=== PATIENT | female | born 1960 | race Caucasian/White ===

== ENCOUNTER 2016-07-21 05:48 | Day surgery (SDC) | payer OTHER ==
[2016-07-16 15:13] VITALS: BMI 25.7
[~2016-07-21 05:48] MED LIST: DEXAMETHASONE SOD PHOSPHATE 10 MG/ML 1 ML VIAL IV ONE; HYDROmorphone 1 MG/ML 1 ML SYRINGE IVP PRN; MIDAZOLAM 2 MG/2 ML VIAL IV PRN; ONDANSETRON 4 MG/2 ML VIAL IVP ONE; Pre Op ABX Message 1 EACH MISC MISCELLANE ONE; SCOPOLAMINE 1.5MG/72HR PATCH TRANSDERM ONE
[2016-07-21 06:11] VITALS: RESP 16
[2016-07-21] MEDS ORDERED: LIDOCAINE 1% 20 ML VIAL (10MG/ML) FOR IV START INTRADERMA ONE (06:16)
[2016-07-21] MEDS: LACTATED RINGERS 1,000 ML IV SCH ×2 (06:16→08:56)
[2016-07-21 06:21] LABS: Glucose,Whole Blood 126 mg/dL (75-99)
[2016-07-21] MEDS ORDERED: ROCURONIUM BROMIDE 10 MG/ML 10 ML VIAL IV ONE (07:52)
[2016-07-21] MEDS ORDERED: GLYCOPYRROLATE 0.2 MG/ML 2 ML VIAL ONE (07:52)
[2016-07-21] MEDS ORDERED: NEOSTIGMINE 1 MG/ML 10 ML VIAL ONE (07:52)
[2016-07-21] MEDS ORDERED: MIDAZOLAM 2 MG/2 ML VIAL ONE (07:52)
[2016-07-21] MEDS ORDERED: PROPOFOL 10 MG/ML 20 ML VIAL IV ONE (07:52)
[2016-07-21] MEDS ORDERED: PHENYLEPHRINE-0.9% NACL SYG 1 MG/10 ML SYRINGE ONE (07:52)
[2016-07-21] MEDS ORDERED: fentaNYL (PF) 50 MCG/ML 2 ML AMP ONE (07:52)
[2016-07-21] MEDS ORDERED: ePHEDrine 50 MG/ML 1 ML AMP ONE (07:52)
[2016-07-21] MEDS ORDERED: LIDOCAINE 1% INJ 10MG/ML (20 ML MDV) ONE (07:52)
[2016-07-21] MEDS ORDERED: LIDOCAINE 2%-EPI 1:100,000 20 ML VIAL ONE (07:52)
[2016-07-21] MEDS ORDERED: SODIUM CHLORIDE 0.9% 50 ML with ceFAZolin 2,000 MG IV ONE ×2 (07:52)
[2016-07-21] MEDS ORDERED: ROPIVACAINE 5 MG/ML 30 ML VIAL ONE (07:52)
[2016-07-21] MEDS ORDERED: SUCCINYLCHOLINE CHLORIDE 100 MG/5 ML SYR IV ONE (07:52)
[2016-07-21 09:12] VITALS: TEMP 98
--- NOTE | 2016-07-21 09:20 | P.OP ---
Date of Procedure: 07/21/16 Preoperative Diagnosis: Massive rotator cuff tear right shoulder Postoperative Diagnosis: 1. Massive rotator cuff tear right shoulder with retraction 2. Labral tear 3. Synovitis 4. Impingement 5. Acromioclavicular osteoarthritis Procedure(s) Performed: 1. Exam under anesthesia right shoulder 2. Arthroscopy of the right shoulder with debridement chronic tear rotator cuff tendon 3. Debridement labral tear 4. Partial synovectomy 5. Subacromial decompression 6. Partial distal clavicle excision Anesthesia: DYLAN Surgeon: Emanuel Mathews Marketing Project Coordinator #1: Leatha Wheta Estimated Blood Loss (ml): 10 Pathology: none sent Condition: stable Disposition: PACU Indications for Procedure: This is a 55-year-old female that presented to my office with chronic pain in her right shoulder. She had an MRI performed which showed a large retracted tear of the rotator cuff tendon. After discussing the surgical and nonsurgical treatment options with her at length, she wishes to proceed with arthroscopic debridement of her right shoulder, possible repair of the rotator cuff tendon. It was explained to her at length that due to the retraction of the tendon, it may not be amendable to repair. She is aware of this, and informed consent was obtained. Operative Findings: The operative findings are consistent with a chronic retracted rotator cuff tear , which was unable to be repaired. Description of Procedure: The patient was seen in the preoperative area, consent was reviewed and the operative site was marked with a skin marker. An interscalene nerve block was performed by the anesthesia department. Patient was then brought to the operating room and given 2 g of Ancef intravenously. A general anesthetic was administered by the anesthesia department. Patient was then placed in a beachchair position. All bony prominences were well-padded and the head secured. Her right shoulder was then prepped and draped in the usual sterile fashion. A universal timeout was then performed, which confirmed the patient's name, ALLERGIES, and consent. An examination of the shoulder under anesthesia was performed, and it was found to have full range of motion with no instability arthrofibrosis. Procedure began by identifying the landmarks of the shoulder, and a posterior portal was established into the glenohumeral joint. The camera was then inserted, and the glenohumeral joint was inspected. The glenohumeral joint was found to have a large amount of synovitis. There was no evidence of any significant chondromalacia. The biceps tendon was intact, although there was some slight fraying and tearing of the anterior and posterior labrum. Subscapularis tendon was intact. There was an extremely large tear of the supraspinatus and infraspinatus portion of the rotator cuff tendon. There were significant retraction. A working portal established anterior aspect of the shoulder, and a shaver was inserted. A partial synovectomy was performed as well as debridement of the labrum. The instruments were then removed, and the trocar was reinserted into the subacromial space. Again the large retracted rotator cuff tendon was visualized from the superior aspect. A tendon grasper was then used to grasp the tendon, and was found to be difficult to mobilize. Due to this lack of mobilization, it was felt the rotator cuff tendon could not be repaired. A third portal established in the lateral aspect of the shoulder, and using electrocautery as well as a shaver rotator cuff tendon was debrided. Subacromial decompression was performed as well, as well as a partial distal clavicle excision. Approximately 10% of the distal clavicle was excised. After thorough irrigation, the instruments were then removed. The portals were then closed with 4-0 nylon suture. Sterile dressing was then applied, the patient placed in an arm sling. Patient was then transferred to recovery room in stable condition. Asst. JADE Montes De Oca was required due the complexity of the surgery and the need for a skilled surgical asst.
[2016-07-21 10:24] VITALS: BP 136/63; PULSE 93
== END 2016-07-21 11:30 | disposition home or self-care (01) ==
LOC: OR 05:48
PROVIDERS: ATTEND Orthopaedic Surgery
DX: M75.121 Complete rotator cuff tear or rupture of right shoulder, not specified as traumatic (principal); S43.401A Unspecified sprain of right shoulder joint, initial encounter; X58.XXXA Exposure to other specified factors, initial encounter; M65.811 Other synovitis and tenosynovitis, right shoulder; M75.41 Impingement syndrome of right shoulder; M19.011 Primary osteoarthritis, right shoulder; I10 Essential (primary) hypertension; E78.2 Mixed hyperlipidemia; D15.1 Benign neoplasm of heart; Z86.73 Personal history of transient ischemic attack (TIA), and cerebral infarction without residual deficits; E11.9 Type 2 diabetes mellitus without complications; Z79.02 Long term (current) use of antithrombotics/antiplatelets; Z79.899 Other long term (current) drug therapy; Z88.8 Allergy status to other drugs, medicaments and biological substances
CPT/HCPCS: 64415; 29824; 29826; J2250; J1100; J2710; J2405; J2001; J3010; J0690; J2795; J2370; J0330; J2704

== ENCOUNTER → 2017-01-26 | Outpatient (CLI) | payer OTHER ==
--- NOTE | 2017-01-27 09:27 | MR ---
EXAMINATION TYPE: MR cervical spine wo con DATE OF EXAM: 01/26/2017 COMPARISON: NONE HISTORY: Neck pain, RUE radic TECHNIQUE: Multiplanar, multisequence images of the cervical spine were acquired. C2-C3: No evidence for degenerative disc disease. No disc bulge/herniation or protrusion. No Canal stenosis. Foramina are patent bilaterally. C3-C4: There is uncovertebral joint hypertrophy in the right with a central and right paracentral dis c bulge. No canal stenosis. Mild right-sided foraminal encroachment. C4-C5: Left paracentral disc bulging and mild effacement of thecal sac. Mild hypertrophy of the facet s. Mild right-sided foraminal encroachment with uncovertebral joint hypertrophy. No Canal stenosis. C5-C6: No evidence for degenerative disc disease. No disc bulge/herniation or protrusion. No Canal stenosis. Foramina are patent bilaterally. C6-C7: No evidence for degenerative disc disease. No disc bulge/herniation or protrusion. No Canal stenosis. Foramina are patent bilaterally. C7-T1: No evidence for degenerative disc disease. No disc bulge/herniation or protrusion. No Canal stenosis. Foramina are patent bilaterally. Cervical segments are intact. There is normal alignment. Cervical spinal cord is of normal signal. Craniovertebral junction relationships are within normal limits. 1.2 cm left thyroid nodule. IMPRESSION: 1. There is a right paracentral disc bulge or small protrusion with uncovertebral joint hypertrophy C 3-C4 and mild right-sided foraminal encroachment. 2. Left paracentral disc bulging with mild effacement of thecal sac C4-C5. Uncovertebral joint hypert rophy on the right at this level contributes to mild right foraminal encroachment. No left foraminal encroachment. 3. 1.2 cm left thyroid nodule.
== END | disposition home or self-care (01) ==
LOC: RADMRIMAIN 20:37
PROVIDERS: ATTEND Family Medicine
DX: M50.11 Cervical disc disorder with radiculopathy, high cervical region (principal)
CPT/HCPCS: 72141

== ENCOUNTER → 2017-02-03 | Outpatient (CLI) | payer OTHER ==
--- NOTE | 2017-02-04 06:01 | WWHP ---
[facility] - HISTORY AND PHYSICAL DATE OF SERVICE: 02/03/2017 CHIEF COMPLAINT: The patient is here for her routine gynecologic exam and mammogram. HPI: This is a 56-year-old, G1, P1 with an LMP of 2010. The patient is without gynecologic complaints and denies any postmenopausal bleeding. PAST MEDICAL HISTORY: Chronic hypertension, CVA in 2016, type 2 diabetes, elevated cholesterol, chronic neck problems, and history of osteopenia. MEDICATIONS: 1. Benazepril 40 mg daily. 2. Atorvastatin 40 mg daily. 3. Glipizide 5 mg daily. 4. Clopidogrel 75 mg daily. ALLERGIES: Allergies to COMPAZINE. PAST SURGICAL HISTORY: Cold knife conization of the cervix in approximately 2008, colonoscopy 2008, right arm surgery, left ankle surgery and left knee surgery in the past. PAST KIT PLANNER HISTORY: She was once told she had HPV following an abnormal Pap smear and also had a cold knife conization of the cervix in 2008. She has no other history of STDs. SOCIAL HISTORY: She admits to smoking about a half a pack of cigarettes per day. She denies alcohol and drug use, but did use marijuana in the past. She is currently unemployed and is filing for disability. FAMILY HISTORY: Sister had cervical cancer. Brother had heart disease and of AIDS. Maternal grandmother had bladder cancer. Father had an ME and lung problems. Mother had heart disease and diabetes. REVIEW OF SYSTEMS: She has gained about 30 pounds over the last 2 to 3 years and this was after losing 50 pounds. She attributes her weight gain to decreased activity following her stroke. She denies respiratory, cardiac or GI problems. PHYSICAL EXAM: Blood pressure 160/67, height 5 feet 4 inches, weight 164 pounds. Temperature 98.4, pulse 102. This is a well-developed, well-nourished, white female, who is alert and oriented x3, in no acute distress. HEENT is within normal limits. NECK: Supple without mass or thyromegaly. CHEST AND LUNGS: Clear to auscultation. HEART: Regular rate and rhythm. Breasts are without mass or discharge. Axillary exam is negative for adenopathy. BACK: Negative for CVA tenderness. ABDOMEN: Soft, nontender, without palpable masses. PELVIC EXAM: External genitalia reveals [id number] atrophy without lesions. Cervix is somewhat shortened and appears somewhat stenotic, consistent with her previous cone biopsy of the cervix. There is no evidence of prolapse. Bimanual exam, the uterus is mid position, nongravid size and nontender. There are no palpable adnexal masses or tenderness. Rectovaginal exam is negative for mass or tenderness and is negative for occult blood. EXTREMITIES: Nontender. IMPRESSION: 1. A 56-year-old menopausal female who is status post cone biopsy of the cervix in 2008. 2. In the patient's electronic medical record, there is documentation that she has had a previous hysterectomy, which I do not believe is correct. 3. Elevated blood pressure on exam today with history of chronic hypertension. 4. Multiple medical problems. PLAN: 1. Pap smear was performed. 2. Self breast examination was discussed. 3. Mammogram will be done today. 4. I have recommended that she follow up with Dr. Hernandez for her elevated blood pressure and also to do home blood pressure checks. 5. Osteoporosis prevention was discussed. We will plan on repeating bone density testing next year. 6. I have stressed the importance of trying to quit smoking, especially with her history of stroke. 7. I will confirm with the patient that she has not had a hysterectomy as indicated on her electronic medical record. If this is the case, and there is an error I will direct her to the medical record department to make a correction in her electronic medical record. 8. She will return in 1 year. MMAUTUMNL / MARCN: [id number] /
--- NOTE | 2017-02-05 08:53 | MM ---
Reason for exam: screening (asymptomatic). Last mammogram was performed 2 years and 10 months ago. History: Patient is postmenopausal and had first child at age 33. Physical Findings: A clinical breast exam by your physician is recommended on an annual basis and results should be correlated with mammographic findings. MG Screening Mammo w CAD Bilateral CC and MLO view(s) were taken. Prior study comparison: April 11, 2014, bilateral MG screening mammo w CAD. The breast tissue is almost entirely fat. No significant changes when compared with prior studies. ASSESSMENT: Negative, BI-RAD 1 RECOMMENDATION: Routine screening mammogram of both breasts in 1 year.
== END | disposition home or self-care (01) ==
LOC: WWCWWP 15:12
PROVIDERS: ATTEND Obstetrics & Gynecology
DX: Z12.31 Encounter for screening mammogram for malignant neoplasm of breast (principal)

== ENCOUNTER → 2017-05-19 | Outpatient (CLI) | payer OTHER ==
[2017-05-14 13:09] VITALS: BMI 27.4
[2017-05-19 11:54] VITALS: BP 131/81; PULSE 97; RESP 20
--- NOTE | 2017-05-19 12:17 | P.HPIM ---
History of Present Illness H&P Date: 05/19/17 Chief Complaint: neck and shoulder pain This is a 56-year-old patient referred by Dr. Hernandez for chronic pain in neck and right arm with radiation to fingers. Patient had shoulder and R arm pain which she believes is due to rotator cuff tear, but underwent unsuccessful repair in June and began to have pain shooting down her arm into her fingers which began a month after the surgery. Patient has been taking medications from primary care physician including [place] medications with some relief. Patient denies adverse drug effects from medications. Patient also denies new- onset weakness, bowel/bladder incontinence, or any other signs or symptoms of cauda equina syndrome. There are no signs of acute intoxication, and no indications of medication diversion or overuse. Patient notes that pain worsens significantly with shoulder abduction and grasping items and improves with rest, heat, and medication. Patient has used several types of medications for pain, including NSAIDS, OPIOIDS ([place]) and BENZODIAZEPINES. Patient HAS had surgery (right shoulder). Patient HAS NOT had injections previously. Patient HAS had physical therapy recently without relief. In addition to above, 13-point review of systems is also negative for chest pain , shortness of breath, changes in vision, changes in hearing, new onset weakness , abdominal pain, diarrhea, extreme fatigue, malaise, fever, skin changes, homicidal or suicidal ideation, or bowel or bladder incontinence. Vital Signs: Reviewed in EMR Gen: WDWN, AAOx3, NAD HEENT: NCAT, EOMI, hearing grossly normal Pulm: resp unlabored Abd: soft, NT, ND Neck: supple, trachea midline ROM in flexion cervical spine: reduced ROM in extension cervical spine: reduced Cervical paravertebral tenderness: + Cervical Facet tenderness: neg Spurling's: + RUE Upper extremity: decreased international project engineer strength RUE secondary to pain; decreased sensation over second and third fingers Neuro: CN II-XII grossly intact, muscle strength lower extremities PRESERVED Past Medical History Past Medical History: CVA/TIA, Diabetes Mellitus, GERD/Reflux, Hyperlipidemia, Hypertension Additional Past Medical History / Comment(s): 2009 patient had TIA, pain rt neck , shoulder and arm History of Any Multi-Drug Resistant Organisms: None Reported Past Surgical History: Orthopedic Surgery Additional Past Surgical History / Comment(s): left knee and ankle Past Anesthesia/Blood Transfusion Reactions: No Reported Reaction Smoking Status: Current every day smoker - Past Family History Mother Family Medical History: Unable to Obtain Father Family Medical History: Myocardial Infarction (MS) Sister(s) Family Medical History: Cancer Additional Family Medical History / Comment(s): uterine cancer Brother(s) Additional Family Medical History / Comment(s): patient states her 2 brothers of AIDS Medications and Allergies Home Medications Medication Instructions Recorded Confirmed Type Benazepril HCl 40 mg PO DAILY 12/11/15 05/14/17 History Atorvastatin [Lipitor] 40 mg PO HS #30 tab 12/14/15 05/14/17 Rx Clopidogrel [Plavix] 75 mg PO DAILY #30 tablet 12/14/15 05/14/17 Rx Hydrocodone/Acetaminophen [[place] 1 - 2 each PO Q6HR PRN #60 tab 07/21/16 Rx 5-325] amLODIPine [Norvasc] 5 mg PO DAILY 05/14/17 05/14/17 History glipiZIDE [Glucotrol] 5 mg PO AC-BRKFST 05/14/17 05/14/17 History Allergies Allergy/AdvReac Type Severity Reaction Status Date / Time prochlorperazine Allergy Severe Anaphylaxis Verified 05/14/17 12:54 [From Compazine] prochlorperazine edisylate Allergy Severe Anaphylaxis Verified 05/14/17 12:54 [From Compazine] prochlorperazine maleate Allergy Severe Anaphylaxis Verified 05/14/17 12:54 [From Compazine] adhesive tape Allergy Rash/Hives Verified 05/14/17 12:55 aspirin AdvReac bruising Verified 05/14/17 12:55 Results Comments: MRI cervical spine without contrast dated 01/26/2017 demonstrates a right paracentral disc bulge or small protrusion with uncovertebral joint hypertrophy at C3-C4 level and mild right-sided foraminal encroachment. There is also left paracentral disc bulge with mild effacement of thecal sac at C4-C5 with uncovertebral joint hypertrophy on the right at this level contributing to mild right foraminal encroachment. Assessment and Plan (1) Cervical disc herniation Current Visit: Yes Status: Chronic Code(s): M50.20 - OTHER CERVICAL DISC DISPLACEMENT, UNSP CERVICAL REGION SNOMED Code(s): 676330418 (2) Cervical myelopathy with cervical radiculopathy Current Visit: Yes Status: Chronic Code(s): M47.12 - OTHER SPONDYLOSIS WITH MYELOPATHY, CERVICAL REGION SNOMED Code(s): 350357370 (3) Chronic pain syndrome Current Visit: Yes Status: Chronic Code(s): G89.4 - CHRONIC PAIN SYNDROME SNOMED Code(s): 139479811 Plan: 1. Explanation: Opioid and psychological risk scores were reviewed. Diagnoses , prognoses, and multiple treatment options including but not limited to physical therapy, interventional therapies, adjuvant medical therapies, narcotic medication therapies, and surgery were discussed with the patient and all questions were answered to the patient's satisfaction. 2. Opioid agreement: Patient signed narcotic agreement, and was orally counseled to not overuse, abuse, divert, or cell medications, and to take them as prescribed by only 1 healthcare provider. The patient was also counseled to take medications as prescribed by only 1 healthcare provider and to store opioid medications in the safe and preferably locked location. Patient was also counseled against driving or operating heavy equipment while using narcotic medications and also not use alcohol or any illicit or recreational drugs. The patient verbalized understanding that lack of compliance with any of the above and likely result in failure to renew narcotic prescriptions, possible discharge from the clinic, and possible legal ramifications thereafter if indicated. 3. Counseling: The patient was counseled extensively on SMOKING CESSATION, BODY MASS INDEX, EXERCISE. Specifically, the patient was instructed regarding the importance of smoking cessation, weight control, and exercise in the context of both chronic pain and overall health. 4. Procedures: cervical HEATHER C7-T1 series if patient can come off Plavix for seven days (Hx CVA) 5. Consultations: none 6. Investigations: none 7. Medications: none prescribed 8. Disposition: f/u for procedure as scheduled PQRS measures: 1-Patient's medications are documented in the chart. 2-Tobacco use is positive, counseling given 3-Patient has not had a pneumococcal vaccine. 4-Advanced care planning discussed, patient unable to give. 5-Opioid contract NOT signed with the patient. 6-Pain positive, follow-up visit or procedure scheduled 7-Patient's blood pressure measured and documented, and patient will follow up with the primary care due to hypertension. 8-Patient's weight was measured, and body mass index ABOVE the normal limits, and counseling was done. Patient instructed to follow up with PCP. 9-Patient WAS NOT identified as an unhealthy alcohol user. Time with Patient: Greater than 30
== END | disposition home or self-care (01) ==
LOC: PNWHC3 11:29
PROVIDERS: ATTEND Anesthesiology
DX: G89.4 Chronic pain syndrome (principal); M50.20 Other cervical disc displacement, unspecified cervical region; M47.12 Other spondylosis with myelopathy, cervical region; E11.9 Type 2 diabetes mellitus without complications; K21.9 Gastro-esophageal reflux disease without esophagitis; E78.5 Hyperlipidemia, unspecified; I10 Essential (primary) hypertension; F17.210 Nicotine dependence, cigarettes, uncomplicated; Z86.73 Personal history of transient ischemic attack (TIA), and cerebral infarction without residual deficits; Z79.899 Other long term (current) drug therapy; Z98.890 Other specified postprocedural states; Z79.1 Long term (current) use of non-steroidal anti-inflammatories (NSAID); Z79.891 Long term (current) use of opiate analgesic; Z79.01 Long term (current) use of anticoagulants; Z79.84 Long term (current) use of oral hypoglycemic drugs; Z88.6 Allergy status to analgesic agent; Z88.8 Allergy status to other drugs, medicaments and biological substances; Z91.048 Other nonmedicinal substance allergy status; Z71.89 Other specified counseling
CPT/HCPCS: 99211

== ENCOUNTER 2017-06-15 06:17 | Day surgery (SDC) | payer OTHER ==
[2017-06-09 15:07] VITALS: BMI 27.4
[2017-06-15 06:57] LABS: Glucose,Whole Blood 122 mg/dL (75-99)
[2017-06-15 06:59] VITALS: TEMP 98.7
[2017-06-15] MEDS ORDERED: LACTATED RINGERS 1,000 ML IV ONE ×2 (06:59→07:45)
[2017-06-15 08:07] VITALS: BP 117/59; PULSE 65; RESP 16
[2017-06-15] MEDS ORDERED: IV FLUID CONTINUATION 1,000 ML IV ONE (08:11)
--- NOTE | 2017-06-15 08:28 | FL ---
EXAMINATION TYPE: FL guided pain mgmt statistic DATE OF EXAM: 06/15/2017 FLUOROSCOPY Fluoroscopy time of 9 seconds was used during cervical epidural injection. 2 image/s document/s the procedure.
--- NOTE | 2017-06-15 08:34 | P.PCN ---
Date of Procedure: 06/15/17 Surgeon: Quoc Menchaca Pathology: none sent Condition: stable Disposition: PACU Description of Procedure: PREOPERATIVE DIAGNOSIS: Cervical radiculopathy. POSTOPERATIVE DIAGNOSIS: Cervical radiculopathy. PROCEDURE 1. Cervical epidural steroid injection under fluoroscopic guidance, C7-T1 level. 2. Cervical epidurogram. ANESTHESIA: Local anesthesia with 1% lidocaine and IV sedation with versed/ fentanyl. EBL: Minimal PROCEDURE INDICATION: The patient with neck pain and radiculitis unresponsive to conservative treatment consents for procedure, FORTUNATO #1 tooday. No use of blood thinners. PROCEDURE DESCRIPTION / TECHNIQUE: The patient was seen and identified in the preoperative area. Risks, benefits, complications, and alternatives were discussed with the patient (including but not limited to incomplete pain relief, bleeding, infection, nerve damage, and allergies to medications), the patient agreed to proceed with the procedure and signed the consent after all questions were answered. Patient was taken to the OR and time out was completed to verify proper patient , position, laterality of pain, and allergies. Pt was placed in the prone position. A pillow was placed under the patients chest to increase the cervical interlaminar space. The cervical and high thoracic area was prepped and draped in the usual sterile fashion. Critical pause was taken. Vital signs were closely monitored during the procedure. Conscious sedation was used during the procedure to decrease patients anxiety. Using anterior-posterior fluoroscopy, the C7-T1 interlaminar space was identified and the skin over this site was marked and then infiltrated with 1% lidocaine subcutaneously in a paramedian fashion. Subsequently, a 20-gauge 3-1/2 -inch Tuohy epidural needle was inserted and advanced toward the epidural space by means of the loss of resistance technique and guided by AP and lateral fluoroscopy. After negative aspiration for blood or CSF and in the absence of paresthesias, the correct needle position in the epidural space was verified with the injection of 1 mL of the water soluble contrast dye [id number]-180 and observing an excellent epidurogram with the epidural spread of the dye, after negative aspiration for blood and CSF and in the absence of paresthesias. Again after negative aspiration, a 4 ml mixture containing 20 mg of Decadron and 2 ml of preservative free Normal Saline solution was injected and a washout of epidurogram was seen. Needle was withdrawn intact, skin was cleansed, and bandages were applied. COMPLICATIONS: None COMMENTS: DISPOSITION / PLANS: The patient was placed in a supine position and transferred to the recovery area in a stable condition for observation. There was no evidence of upper extremity motor or sensory deficit after the procedure. Patient was discharged from the recovery room after meeting discharge criteria. Home discharge instructions were given to the patient by the staff. The patient was reexamined prior to discharge and there were no issues. The patient will schedule a repeat procedure in 3-4 weeks.
== END 2017-06-15 08:19 | disposition home or self-care (01) ==
LOC: ORPAIN 06:17
PROVIDERS: ATTEND Anesthesiology
DX: G89.29 Other chronic pain (principal); M54.12 Radiculopathy, cervical region; Z86.73 Personal history of transient ischemic attack (TIA), and cerebral infarction without residual deficits; E11.9 Type 2 diabetes mellitus without complications; Z79.84 Long term (current) use of oral hypoglycemic drugs; K21.9 Gastro-esophageal reflux disease without esophagitis; E78.5 Hyperlipidemia, unspecified; I10 Essential (primary) hypertension; F17.200 Nicotine dependence, unspecified, uncomplicated; Z79.02 Long term (current) use of antithrombotics/antiplatelets; Z79.899 Other long term (current) drug therapy; Z88.6 Allergy status to analgesic agent; Z88.8 Allergy status to other drugs, medicaments and biological substances; Z91.09 Other allergy status, other than to drugs and biological substances
CPT/HCPCS: 62321; J2250; J1100; Q9965; J3010; 99152

== ENCOUNTER 2017-07-08 05:54 | Day surgery (SDC) | payer OTHER ==
[2017-07-03 10:32] VITALS: BMI 27.9
[~2017-07-08 05:54] MED LIST changes: -DEXAMETHASONE SOD PHOSPHATE 10 MG/ML 1 ML VIAL IV ONE; -HYDROmorphone 1 MG/ML 1 ML SYRINGE IVP PRN; +LACTATED RINGERS 1,000 ML IV SCH; -MIDAZOLAM 2 MG/2 ML VIAL IV PRN; -ONDANSETRON 4 MG/2 ML VIAL IVP ONE; -Pre Op ABX Message 1 EACH MISC MISCELLANE ONE; -SCOPOLAMINE 1.5MG/72HR PATCH TRANSDERM ONE
[2017-07-08 06:36] VITALS: RESP 18; TEMP 98
[2017-07-08] MEDS ORDERED: LIDOCAINE 1% 20 ML VIAL (10MG/ML) FOR IV START INTRADERMA ONE (06:37)
[2017-07-08] MEDS ORDERED: LACTATED RINGERS 1,000 ML IV ONE ×3 (06:37→07:35)
[2017-07-08 06:45] LABS: Glucose,Whole Blood 161 mg/dL (75-99)
[2017-07-08 07:51] VITALS: BP 107/62; PULSE 69
--- NOTE | 2017-07-08 07:54 | P.PCN ---
Date of Procedure: 07/08/17 Surgeon: Quoc Menchaca Pathology: none sent Condition: stable Disposition: PACU Description of Procedure: PREOPERATIVE DIAGNOSIS: Cervical radiculopathy. POSTOPERATIVE DIAGNOSIS: Cervical radiculopathy. PROCEDURE 1. Cervical epidural steroid injection under fluoroscopic guidance, C7-T1 level. 2. Cervical epidurogram. ANESTHESIA: Local anesthesia with 1% lidocaine and IV sedation with versed/ fentanyl. EBL: Minimal PROCEDURE INDICATION: The patient with neck pain and radiculitis unresponsive to conservative treatment consents for procedure, FORTUNATO #2 today after good relief for one week from first injection and complete elimination of numbness/ tingling in RUE. Off Plavix x 7 days. PROCEDURE DESCRIPTION / TECHNIQUE: The patient was seen and identified in the preoperative area. Risks, benefits, complications, and alternatives were discussed with the patient (including but not limited to incomplete pain relief, bleeding, infection, nerve damage, and allergies to medications), the patient agreed to proceed with the procedure and signed the consent after all questions were answered. Patient was taken to the OR and time out was completed to verify proper patient , position, laterality of pain, and allergies. Pt was placed in the prone position. A pillow was placed under the patients chest to increase the cervical interlaminar space. The cervical and high thoracic area was prepped and draped in the usual sterile fashion. Critical pause was taken. Vital signs were closely monitored during the procedure. Conscious sedation was used during the procedure to decrease patients anxiety. Using anterior-posterior fluoroscopy, the C7-T1 interlaminar space was identified and the skin over this site was marked and then infiltrated with 1% lidocaine subcutaneously in a paramedian fashion. Subsequently, a 20-gauge 3-1/2 -inch Tuohy epidural needle was inserted and advanced toward the epidural space by means of the loss of resistance technique and guided by AP and lateral fluoroscopy. After negative aspiration for blood or CSF and in the absence of paresthesias, the correct needle position in the epidural space was verified with the injection of 1 mL of the water soluble contrast dye Omnipaque-180 and observing an excellent epidurogram with the epidural spread of the dye, after negative aspiration for blood and CSF and in the absence of paresthesias. Again after negative aspiration, a 4 ml mixture containing 20 mg of Decadron and 2 ml of preservative free Normal Saline solution was injected and a washout of epidurogram was seen. Needle was withdrawn intact, skin was cleansed, and bandages were applied. COMPLICATIONS: None COMMENTS: DISPOSITION / PLANS: The patient was placed in a supine position and transferred to the recovery area in a stable condition for observation. There was no evidence of upper extremity motor or sensory deficit after the procedure. Patient was discharged from the recovery room after meeting discharge criteria. Home discharge instructions were given to the patient by the staff. The patient was reexamined prior to discharge and there were no issues. The patient will schedule a repeat procedure in 3-4 weeks.
--- NOTE | 2017-07-08 08:05 | FL ---
EXAMINATION TYPE: FL guided pain mgmt statistic DATE OF EXAM: 07/08/2017 FLUOROSCOPY Fluoroscopy time of 8 seconds was used during cervical epidural injection. 3 image/s document/s the procedure.
== END 2017-07-08 08:13 | disposition home or self-care (01) ==
LOC: ORPAIN 05:54
PROVIDERS: ATTEND Anesthesiology
DX: M54.12 Radiculopathy, cervical region (principal); E78.5 Hyperlipidemia, unspecified; Z88.6 Allergy status to analgesic agent; Z88.8 Allergy status to other drugs, medicaments and biological substances; Z79.02 Long term (current) use of antithrombotics/antiplatelets; Z95.5 Presence of coronary angioplasty implant and graft
CPT/HCPCS: 62321; J2250; J1100; Q9965; J3010

== ENCOUNTER → 2017-07-30 | Outpatient (CLI) | payer OTHER ==
[2017-07-30 14:04] VITALS: BP 120/88; PULSE 90; RESP 18
--- NOTE | 2017-07-30 14:38 | P.PN ---
Subjective Progress Note Date: 07/30/17 This is 56 years old female with a history of severe neck pain with radiation to right upper extremity, diagnosed with cervical radiculopathy, with done cervical epidural steroid injection, 2 and she reported that the pain in the right upper extremity and controlled, but she continued to have severe neck pain mainly on the right side, she denies any change in the bowel movements or urination she denies any fever or night sweats, the pain intensity increases with any neck movement, the pain localized only on the right side of the neck and intensity of the pain is 7/10, she has [place] 5/325 one to 2 tablets every 8 hours she denies any side effects of the medication and she is getting prescription refills from her primary care Objective - Vital Signs Vital signs: Vital Signs Temp Pulse 90 07/30/17 13:55 Resp 18 07/30/17 13:55 BP 120/88 07/30/17 13:55 Pulse Ox 97 07/30/17 13:55 Intake & Output 07/29/17 07/30/17 07/30/17 18:59 06:59 18:59 Weight 73.482 kg - Exam Physical Examinations : 1-Constitutiona : Cooperative , not in acute distress . 2-HEENT : nech ; supple , no Lymphadenopathy , normal thyroid size . eyes : no ptosis , no icterus, no photophobia . ENT : normal of hearing , normal oropharynx , no Thrush . 3- Respiratory : Chest clear to auscultations Bilaterally , no wheezing , no Rhonchi . 4- Cardiovascular : regular rate and rhythem , S1 , S2 , no S3 , no S4. 5- Gastrointestinal : abdomen soft no tenderness , bowel sounds positive all four quadrents , no organomegally . 6- Genitourinary : Defferred . 7- neurologic : Cranial nerve II to XII intact , no focal neurological deffecit . 8-psychatric : alert , oriented X 3 , appropriate affect , intact judgment and insight . 9-Lymphatic : no Lymphadenopathy . 10- musculoskeltal : cervical spine = motor stregnth in the deltoid and biceps, motor stregnth biceps and the wrist extensors (C6) . motor stregnth in the triceps muscle . deep tendon reflexes normal at the biceps , normal at Brachioradialis , normal at the Triceps positive cervical facet loading test (Right side ). , Lumber spine = normal moter stegnth lower extremities ,thigh and legs .08/29 Assessment and Plan Plan: Assessment and plan= 1-cervical spondylosis with cervical facet arthropathy without myelopathy. 2-cervical radiculopathy. Patient continued to have severe neck pain after the cervical epidural steroid injections 2, She will be good candidate to target the facet component of her neck pain, we will schedule her to have right second diagnostic medial branch block cervical area right , C3, C4, C5, C6 , and if she can control if then she would be good candidate for radiofrequency ablation . Time with Patient: Less than 30
== END | disposition home or self-care (01) ==
LOC: PNWHC3 13:31
PROVIDERS: ATTEND Specialist
DX: M47.22 Other spondylosis with radiculopathy, cervical region (principal); M46.92 Unspecified inflammatory spondylopathy, cervical region; Z79.891 Long term (current) use of opiate analgesic
CPT/HCPCS: 99211

== ENCOUNTER → 2017-09-02 | Day surgery (SDC) | payer OTHER ==
[2017-08-31 15:13] VITALS: BMI 28.3
[~2017-09-02] MED LIST changes: +LACTATED RINGERS 1,000 ML IV ONE; +LIDOCAINE 1% 20 ML VIAL (10MG/ML) FOR IV START INTRADERMA ONE
[2017-09-02 08:34] VITALS: TEMP 97.9
[2017-09-02 08:41] LABS: Glucose,Whole Blood 148 mg/dL (75-99)
--- NOTE | 2017-09-02 09:52 | P.PCN ---
Date of Procedure: 09/02/17 Procedure(s) Performed: PREOPERATIVE DIAGNOSIS:1- Cervical Spondylosis with Facet Arthropathy.without myelopathy. 2-cervical radiculopathy. POSTOPERATIVE DIAGNOSIS: Same as preoperative diagnosis. PROCEDURES: Diagnostic right. C3 , C4 , C5 medial branch blocks, with fluoroscopic guidance ( 3 leveles ) ANESTHESIA: Local with 1% lidocaine; moderate sedation with Versed. 2 mg , and fentanyl 50 micrograms EBL: Minimal PROCEDURE INDICATION: The patient with neck pain secondary to cervical arthropathy unresponsive to more conservative treatments. PROCEDURE DESCRIPTION / TECHNIQUE: The patient was seen and identified in the preoperative area. Risks, benefits, complications, and alternatives were discussed with the patient, the patient agreed to proceed with the procedure and signed the consent. IV was started. Vital signs remained stable throughout the procedure. Patient was taken to the OR and time out was completed. The patient was placed in the prone position on the procedure table. A pillow was placed under the patients chest to increase the cervical interlaminar space. The cervical area was prepped and draped in the usual sterile fashion. Critical pause was taken. Vital signs were closely monitored during the procedure. Conscious sedation was used during the procedure to decrease patients anxiety. Using cross-table lateral fluoroscopy, the centroid of the trapezoid of right C3 , C4 , C5 , was identified, marked, and localized with 1% lidocaine 1 ml at each level for skin and Sub Q infiltrations . Subsequently, a 25 G 3 spinal needle was advanced guided by fluoroscopy to the centroid of the trapezoid of Right C3, C4 , C5, . [place] tip position was confirmed at the centroid of the trapezoids of Right C3 , C4 , C5 , with anteroposterior fluoroscopy. Subsequently, 1.5 ml of preservative-free Bupivacaine 0.5% mixed with Kenalog 40 mg and half ml of the mixture was injected after negative aspiration for blood and CSF. [place] was then removed intact .. COMPLICATIONS: No acute complications DISPOSITION / PLANS: The patient was placed in a supine position and transferred to the recovery area in a stable condition for observation and was discharged from the recovery room after meeting discharge criteria. Home discharge instructions given to the patient by the staff. The patient was reexamined prior to discharge. The patient will schedule a follow up in the clinic in 2-4 weeks. Note = the plan was to do the block for Right medial branches C3 ,C4 , C5 , C6 , But I could not visualize C6 Vertebra , ,then I Did not do C6 medial branches Block.
[2017-09-02 10:10] VITALS: BP 111/53; PULSE 68; RESP 16
--- NOTE | 2017-09-02 11:26 | FL ---
EXAMINATION TYPE: FL guided pain mgmt statistic DATE OF EXAM: 09/02/2017 COMPARISON: NONE HISTORY: Neck pain TECHNIQUE: Fluoroscopy. FINDINGS/IMPRESSION: Fluoroscopic guidance was provided during procedure performed by Dr. Martell. A total of 10 seconds of fluoroscopic time was utilized during the procedure and 2 spot images was a cquired demonstrating multilevel localization of the cervical spine.
== END ==
LOC: ORPAIN 06:52
PROVIDERS: ATTEND Specialist
DX: M47.22 Other spondylosis with radiculopathy, cervical region (principal); I10 Essential (primary) hypertension; E11.9 Type 2 diabetes mellitus without complications; Z86.73 Personal history of transient ischemic attack (TIA), and cerebral infarction without residual deficits; Z88.8 Allergy status to other drugs, medicaments and biological substances; Z88.6 Allergy status to analgesic agent
CPT/HCPCS: 64490; 64491; 64492; J1100; 99152

== ENCOUNTER 2017-09-28 05:56 | Day surgery (SDC) | payer OTHER ==
[2017-09-23 11:05] VITALS: BMI 28.3
[~2017-09-28 05:56] MED LIST changes: -LACTATED RINGERS 1,000 ML IV ONE; -LIDOCAINE 1% 20 ML VIAL (10MG/ML) FOR IV START INTRADERMA ONE
[2017-09-28 06:48] VITALS: RESP 18; TEMP 98.1
[2017-09-28] MEDS ORDERED: LIDOCAINE 1% 20 ML VIAL (10MG/ML) FOR IV START INTRADERMA ONE (07:04)
--- NOTE | 2017-09-28 07:22 | P.PCN ---
Date of Procedure: 09/28/17 Procedure(s) Performed: PREOPERATIVE DIAGNOSIS:1- Cervical Spondylosis with Facet Arthropathy.without myelopathy. 2-cervical radiculopathy POSTOPERATIVE DIAGNOSIS: Same as preop diagnosis. PROCEDURES: Diagnostic right. C3, C4 , C5 medial branch blocks, with fluoroscopic guidance ( 3 Leveles ) ANESTHESIA: moderate sedation with Versed. 2 mg , and fentanyl 50 micrograms , and local infiltration with lidocaine 1% 3 mL EBL: Minimal PROCEDURE INDICATION: The patient with neck pain secondary to cervical arthropathy unresponsive to more conservative treatments. PROCEDURE DESCRIPTION / TECHNIQUE: The patient was seen and identified in the preoperative area. Risks, benefits, complications, and alternatives were discussed with the patient, the patient agreed to proceed with the procedure and signed the consent. IV was started. Vital signs remained stable throughout the procedure. Patient was taken to the OR and time out was completed. The patient was placed in the prone position on the procedure table. A pillow was placed under the patients chest to increase the cervical interlaminar space. The cervical area was prepped and draped in the usual sterile fashion. Critical pause was taken. Vital signs were closely monitored during the procedure. Conscious sedation was used during the procedure to decrease patients anxiety. Using cross-table lateral fluoroscopy, the centroid of the trapezoid of right C3 , C4 , C5 was identified, marked, and localized with 1% lidocaine 1 ml at each level for skin and Sub Q infiltrations . Subsequently, a 22 G spinal needle was advanced guided by fluoroscopy to the centroid of the trapezoid of Right C3, C4 , C5. [place] tip position was confirmed at the centroid of the trapezoids of Right C3 , C4 , C5 with anteroposterior fluoroscopy. Subsequently, 1,5 ml of preservative-free Bupivacaine 0.5% mixed with Depomedrol 40 mg and half ml of the mixture was injected after negative aspiration for blood and CSF. [place] was then removed intact. COMPLICATIONS: No acute complications. COMMENTS: Patient was 5/10 before the previous procedure and decreased to 0/10 after the procedure, and today is the second diagnostic medial branch block her pain level when she admitted was 5/10, and immediately after the procedure it was 0 after 10 DISPOSITION / PLANS: The patient was placed in a supine position and transferred to the recovery area in a stable condition for observation and was discharged from the recovery room after meeting discharge criteria. Home discharge instructions given to the patient by the staff. The patient was reexamined prior to discharge. The patient will schedule a follow up in the clinic in 2-4 weeks.
[2017-09-28] MEDS ORDERED: IV FLUID CONTINUATION 850 ML IV ONE (07:24)
[2017-09-28 07:38] LABS: Glucose,Whole Blood 113 mg/dL (75-99)
[2017-09-28 07:45] VITALS: BP 123/81; PULSE 67
--- NOTE | 2017-09-28 11:04 | FL ---
Fluoroscopy HISTORY: Pain 16 seconds fluoroscopy time supplied to the referring clinician. 1 intraoperative C-arm images docum ent the procedure. See dictated report from anesthesia.
== END 2017-09-28 07:54 | disposition home or self-care (01) ==
LOC: ORPAIN 05:56
PROVIDERS: ATTEND Specialist
DX: M47.22 Other spondylosis with radiculopathy, cervical region (principal); Z88.6 Allergy status to analgesic agent; Z88.8 Allergy status to other drugs, medicaments and biological substances; Z79.02 Long term (current) use of antithrombotics/antiplatelets; I10 Essential (primary) hypertension; E11.9 Type 2 diabetes mellitus without complications; Z86.73 Personal history of transient ischemic attack (TIA), and cerebral infarction without residual deficits
CPT/HCPCS: 64490; 64491; J2250; J1030; J3010; 64492; 99152

== ENCOUNTER → 2017-10-19 | Outpatient (CLI) | payer OTHER ==
[2017-10-19 12:05] VITALS: BP 148/77; PULSE 81; RESP 18
--- NOTE | 2017-10-19 12:19 | P.PAINPG ---
Subjective Progress Note Date: 10/19/17 Principal diagnosis: Cervical spondylosis without radiculopathy This is a very pleasant 56-year-old woman with a history of intractable right- sided neck pain. She is undergone 2 previous diagnostic cervical medial branch nerve blocks. She reports that each of these relieved her pain nearly completely for approximate 4-6 hours after the procedure. She presents today to the clinic Objective - Vital Signs Vital signs: Vital Signs Temp Pulse 81 10/19/17 12:00 Resp 18 10/19/17 12:00 BP 148/77 10/19/17 12:00 Pulse Ox 98 10/19/17 12:00 Intake & Output 10/18/17 10/19/17 10/19/17 18:59 06:59 18:59 Weight 73.936 kg - Exam General: The patient is alert and oriented. Patient is not sedateded Patient answers all question appropriately. Cardiac: Heart is regular in rate and rhythm Respiratory: Clear to auscultation. No audible wheezes. Abdomen: Soft nontender nondistended. Upper extremities: Strength is normal bilaterally. Sensation is normal bilaterally. Reflexes are preserved and symmetric bilaterally. Straight leg raise is negative bilaterally. Cervical facet loading maneuvers are positive on the right side, negative on the left side. Range of motion for neck extension as well as flexion is normal. Side bending and side rotation are within normal range of motion however right-sided maneuvers are provocative for the patient's pain. Assessment and Plan (1) Cervical spondylosis without myelopathy Narrative/Plan: Plan of Care 1. Medications: Patient is not receiving any medications from this clinic. 2. Interventions: We will schedule the patient for a right cervical radiofrequency ablation at the C3, C4, C5 levels. She will need to discontinue her Plavix for 7 days prior to this procedure. She has done this in the past and does have permission from her prescribing physician to do this. 3. Referrals: None 4. Testing: None 5. Psychological: Patient denies significant anxiety or depression today. I would not refer her to a psychologist. Current Visit: Yes Status: Acute Code(s): M47.812 - SPONDYLOSIS W/O MYELOPATHY OR RADICULOPATHY, CERVICAL REGION SNOMED Code(s): 995083160 PQRS Measure Charge Sheet Measure #130: Documentation of Current Meds in Medical Chart: Patient's medications documented in chart Measure #226: Tobacco Use: Screen & Cessation Intervention: Pt screened for tobacco use AND intervention given Measure #111: Pneumonia Vaccination: Pneumococcal vaccine NOT administered or previously given Measure #47: Advance Care Plan: Advance care planning discussed & documented, pt chose/unable to give Measure #412: Opioid Treatment Agreement: No documentation of signed opioid treatment agreement Measure #408: Opioid Therapy Follow-up Evaluation: Patient had NO f/u eval minimum every 3 months during opioid therapy Measure #317: Preventitive Care & Scrn High Bld Press & F/U: Normal blood pressure, f/u not required Measure #128: Body Mass Index (BMI) Screening & Follow-up: BMI documented within normal parameters Measure #131: Pain Assessment & Follow-up: Pain positive & plan documented Measure #431: Unhealthy Alcohol Use Preventative Care & Scrn: Patient not identified as an unhealthy alcohol user PQRS Narrative: Smoking Status Current every day smoker Do You Want the Pneumonia Yes Vaccine AT THIS TIME? Blood Pressure 148/77 Pain Intensity [Generalized] 5 Scale Used Numeric (1 - 10) Hx Alcohol Use (MH) No Home Medications: Ambulatory Orders Benazepril HCl 40 mg PO DAILY 12/11/15 Atorvastatin [Lipitor] 40 mg PO HS #30 tab 12/14/15 Clopidogrel [Plavix] 75 mg PO DAILY #30 tablet 12/14/15 Hydrocodone/Acetaminophen [[place] 5-325] 1 - 2 each PO Q6HR PRN #60 tab 07/21/16 amLODIPine [Norvasc] 5 mg PO DAILY 05/14/17 glipiZIDE [Glucotrol] 5 mg PO AC-SUPPER 05/14/17 Controlled Substance Measures - Controlled Substance Measures Is patient prescribed a controlled substance at discharge?: No
== END | disposition home or self-care (01) ==
LOC: PNWHC3 11:40
PROVIDERS: ATTEND Anesthesiology
DX: M47.812 Spondylosis without myelopathy or radiculopathy, cervical region (principal); Z79.899 Other long term (current) drug therapy; Z79.02 Long term (current) use of antithrombotics/antiplatelets
CPT/HCPCS: 99211

== ENCOUNTER 2017-11-10 09:43 | Day surgery (SDC) | payer OTHER ==
[2017-11-04 15:20] VITALS: BMI 27.8
[2017-11-10] MEDS ORDERED: LIDOCAINE 1% 20 ML VIAL (10MG/ML) FOR IV START INTRADERMA ONE (10:20)
[2017-11-10 10:21] VITALS: RESP 16; TEMP 98.4
[2017-11-10 10:22] LABS: Glucose,Whole Blood 169 mg/dL (75-99)
--- NOTE | 2017-11-10 11:28 | P.PCN ---
Date of Procedure: 11/10/17 Surgeon: Umair Berg Pathology: none sent Condition: stable Disposition: PACU Description of Procedure: PREOPERATIVE DIAGNOSIS: Cervical spondylosis with Facet Arthropathy without myelopathy. POSTOPERATIVE DIAGNOSIS: Cervical spondylosis with Facet Arthropathy without myelopathy. PROCEDURES: Radiofrequency thermocoagulation, C3, C4, and C5 medial branch with Fluroscopy [place] ANESTHESIA: Local with 1% lidocaine; IV sedation with fentanyl and Versed. EBL: Minimal PROCEDURE INDICATION: The patient with neck pain secondary to cervical arthropathy who had more than 50% relief of her pain with previous diagnostic cervical medial branch block. PROCEDURE DESCRIPTION / TECHNIQUE: The patient was seen and identified in the preoperative area. Risks, benefits, complications, and alternatives were discussed with the patient, the patient agreed to proceed with the procedure and signed the consent. IV was started. Vital signs remained stable throughout the procedure. Patient was taken to the OR and time out was completed. The patient was placed in the prone position on the procedure table. A pillow was placed under the patients chest to increase the cervical interlaminar space. The cervical area was prepped and draped in the usual sterile fashion. Critical pause was taken. Vital signs were closely monitored during the procedure. Conscious sedation was used during the procedure to decrease patients anxiety. Using cross-table lateral fluoroscopy, the center of the trapezoid-shaped cervical pillars of C3, C4,and C5 were identified, marked, and localized with 1% lidocaine. Subsequently, a 20 [id number] radiofrequency cannula with a 10- mm active tip was advanced guided by fluoroscopy to the target points mentioned above, which also corresponds to the waist of the lateral edge of vertebra and lumbar 3, 4 and 5 on the AP view of fluoroscopy . Each site then underwent motor testing at 2 Hz and 0 to 3 volt with local stimulation, but no radicular symptoms down the arm. Thereafter C3 ,C4 and C5 sites underwent radiofrequency thermocoagulation at 80 degrees celsius for 90 seconds after injecting 0.5 ml of PF lidocaine 1%. After thermocoagulation, 1 ml of the block solution containing Dexamethasone 10 mg and 2 mL of preservative-free Lidocaine 1% was injected at the C3,C4, and C5 levels after negative aspiration of CSF and blood and with no paresthesias. Cannulas were retracted. Skin was cleansed and bandages were applied. COMPLICATIONS: No acute complications. COMMENTS: DISPOSITION / PLANS: The patient was placed in a supine position and transferred to the recovery area in a stable condition for observation and was discharged from the recovery room after meeting discharge criteria. Home discharge instructions given to the patient by the staff. The patient was reexamined prior to discharge.
[2017-11-10] MEDS ORDERED: IV FLUID CONTINUATION 1,000 ML IV ONE (11:37)
--- NOTE | 2017-11-10 11:43 | FL ---
EXAMINATION TYPE: FL guided pain mgmt statistic DATE OF EXAM: 11/10/2017 CLINICAL HISTORY: Neck pain. TECHNIQUE: Fluoroscopy. COMPARISON: None. FINDINGS: Fluoroscopic guidance was provided during pain relief procedure performed by Dr. Berg . A total of 23 seconds of fluoroscopic time was utilized during the procedure and two spot images ar e acquired. Images acquired shows needle localization at several levels off the midline in the cervi marika spine. IMPRESSION: As Above.
[2017-11-10 12:01] VITALS: BP 114/74; PULSE 71
== END 2017-11-10 12:14 | disposition home or self-care (01) ==
LOC: ORPAIN 09:43
PROVIDERS: ATTEND Anesthesiology
DX: M47.812 Spondylosis without myelopathy or radiculopathy, cervical region (principal); Z86.73 Personal history of transient ischemic attack (TIA), and cerebral infarction without residual deficits; Z88.6 Allergy status to analgesic agent; Z88.8 Allergy status to other drugs, medicaments and biological substances
CPT/HCPCS: 64633; 64634; J2250; J1100; J2001; J3010; 99152; 99153

== ENCOUNTER 2017-11-16 13:44 | Emergency (ER) | payer OTHER ==
[2017-11-16 14:13] VITALS: RESP 18
--- NOTE | 2017-11-16 14:37 | ED ---
Neck Injury/Pain HPI - General Chief Complaint: Neck Pain/Injury Stated Complaint: Neck Pain Time Seen by Provider: 11/16/17 14:23 Source: patient, RN notes reviewed Mode of arrival: ambulatory Limitations: no limitations - History of Present Illness Initial Comments: This is a 57-year-old female who presents to the emergency department with chief complaint of neck pain. Patient states that she is seen by Dr. Berg at the pain clinic here at [facility]. She states that this year, she has underwent 5 different neck injections. Patient states that they have gone in and burned the ends of her nerves. She is unsure of the specific procedure. She states that on Thursday she had her fifth procedure performed. She states that she has had an increase in pain and she feels like the neck is swollen, red and warm. She states that she did contact the pain clinic and they told her to come to the emergency department. She states she was told that somebody from the pain clinic would come down and evaluate her. Patient denies any fevers or chills, chest pain or shortness of breath, abdominal pain, nausea or vomiting. She denies any recent injuries or trauma. - Related Data Home Medications Medication Instructions Recorded Confirmed Benazepril HCl 40 mg PO DAILY 12/11/15 11/16/17 amLODIPine [Norvasc] 5 mg PO DAILY 05/14/17 11/16/17 glipiZIDE [Glucotrol] 5 mg PO AC-SUPPER 05/14/17 11/16/17 Hydrocodone/Acetaminophen [[place] 1 - 2 tab PO Q6HR PRN 11/16/17 11/16/17 5-325] Previous Rx's Medication Instructions Recorded Atorvastatin [Lipitor] 40 mg PO HS #30 tab 12/14/15 Clopidogrel [Plavix] 75 mg PO DAILY #30 tablet 12/14/15 Allergies Allergy/AdvReac Type Severity Reaction Status Date / Time prochlorperazine Allergy Severe Anaphylaxis Verified 11/16/17 14:20 [From Compazine] prochlorperazine edisylate Allergy Severe Anaphylaxis Verified 11/16/17 14:20 [From Compazine] prochlorperazine maleate Allergy Severe Anaphylaxis Verified 11/16/17 14:20 [From Compazine] adhesive tape Allergy Rash/Hives Verified 11/16/17 14:20 aspirin AdvReac bruising Verified 11/16/17 14:20 Review of Systems ROS Statement: Those systems with pertinent positive or pertinent negative responses have been documented in the HPI. ROS Other: All systems not noted in ROS Statement are negative. Past Medical History Past Medical History: CVA/TIA, Diabetes Mellitus, GERD/Reflux, Hyperlipidemia, Hypertension Additional Past Medical History / Comment(s): 2010/ TIA, pain rt neck, shoulder and arm with weakness and limited movement of rt arm History of Any Multi-Drug Resistant Organisms: None Reported Past Surgical History: Orthopedic Surgery Additional Past Surgical History / Comment(s): left knee and ankle , RIGHT SHOULDER SURGERY Past Anesthesia/Blood Transfusion Reactions: No Reported Reaction Additional Past Anesthesia/Blood Transfusion Reaction / Comment(s): "COULD FEEL EVERYTHING THEY WERE DOING ON MY BACK THE LAST PAIN PROCEDURE" Past Psychological History: No Psychological Hx Reported Smoking Status: Current every day smoker Past Alcohol Use History: None Reported Past Drug Use History: None Reported - Past Family History Mother Family Medical History: Unable to Obtain Father Family Medical History: Myocardial Infarction ([place]) Sister(s) Family Medical History: Cancer Additional Family Medical History / Comment(s): uterine cancer Brother(s) Additional Family Medical History / Comment(s): patient states her 2 brothers of AIDS General Exam - General Exam Comments Initial Comments: General: Awake and alert, well-developed; in no apparent distress. HEENT: Head atraumatic, normocephalic. Pupils are equal, round and reactive to light. Extraocular movements intact. Oropharynx moist without erythema or exudate. Neck: Supple. Normal ROM. There is mild erythema and swelling noted to the right side of the neck. This area is tender on palpation. 4 dark, small puncture sites are noted from previous procedure. Cardiovascular: Regular rate and rhythm. No murmurs, rubs or gallops. Chest symmetrical. Respiratory: Lungs clear to auscultation bilaterally. No wheezes, rales or rhonchi. Normal respiratory effort with no use of accessory muscles. Musculoskeletal: Normal ROM, no tenderness bilateral upper and lower extremities. Ambulating normally. Skin: [place], warm and dry without rashes or lesions. Neurological: Alert and oriented x3. CN II-XII grossly intact. Speech is fluent and answers are appropriate. No focal neuro deficits. Psychiatric: Normal mood and affect. No overt signs of depression or anxiety noted. Limitations: no limitations Course Vital Signs 11/16/17 11/16/17 14:10 15:13 Temperature 98.3 F Pulse Rate 95 Respiratory 18 18 Rate Blood Pressure 116/76 O2 Sat by Pulse 99 Oximetry - Reevaluation(s) Reevaluation #1: I was in contact with the pain center here at [facility]. Dr. Berg agrees to come down and evaluate patient. 11/16/17 14:36 Reevaluation #2: Patient was evaluated by Dr. Berg. He is recommending basic labs, CRP and ESR. Requested to be contacted when laboratory results are complete. 11/16/17 15:01 Medical Decision Making - Medical Decision Making This is a 57-year-old female who presents to the emergency department with chief complaint of post procedure neck pain. Patient reports swelling and worsening of pain to the right side of her neck where she had a procedure performed this past Thursday. This was performed by Dr. Berg at the pain center. I was in contact with Dr. Berg who came down and evaluated the patient. He recommended CBC, CMP, CRP and ESR. WBC was slightly elevated at 11.7. CRP and ESR are within normal limits. I spoke with Dr. Berg who recommends discharge home. He recommended patient to return to the emergency department if she develops any fevers or severe pain. He recommended follow-up to the pain center for MRI if patient's symptoms do not improve. Findings and plan were discussed with patient at bedside. She is in agreement. Vital signs are stable and she is in no acute distress. She will be discharged home at this time. All questions answered. - Lab Data Result diagrams: 11/16/17 15:22 11/16/17 15:22 Lab Results 11/16/17 11/16/17 Range/Units 15:22 15:22 WBC 11.7 H (3.8-10.6) k/uL RBC 5.05 (3.80-5.40) m/uL Hgb 14.8 (11.4-16.0) gm/dL Hct 43.5 (34.0-46.0) % MCV 86.1 (80.0-100.0) fL MCH 29.3 (25.0-35.0) pg MCHC 34.0 (31.0-37.0) g/dL RDW 13.4 (11.5-15.5) % Plt Count 308 (150-450) k/uL Neutrophils % 68 % Lymphocytes % 22 % Monocytes % 6 % Eosinophils % 2 % Basophils % 0 % Neutrophils # 8.0 H (1.3-7.7) k/uL Lymphocytes # 2.5 (1.0-4.8) k/uL Monocytes # 0.7 (0-1.0) k/uL Eosinophils # 0.2 (0-0.7) k/uL Basophils # 0.0 (0-0.2) k/uL ESR 20 (0-20) mm/hr Sodium 141 (137-145) mmol/L Potassium 4.6 (3.5-5.1) mmol/L Chloride 109 H (98-107) mmol/L Carbon Dioxide 23 (22-30) mmol/L Anion Gap 9 mmol/L BUN 12 (7-17) mg/dL Creatinine 0.60 (0.52-1.04) mg/dL Est GFR (CKD-EPI)AfAm >90 (>60 ml/min/1.73 sqM) Est GFR (CKD-EPI)NonAf >90 (>60 ml/min/1.73 sqM) Glucose 150 H (74-99) mg/dL Calcium 9.7 (8.4-10.2) mg/dL Total Bilirubin 0.6 (0.2-1.3) mg/dL AST 25 (14-36) U/L ALT 28 (9-52) U/L Alkaline Phosphatase 102 (38-126) U/L C-Reactive Protein 7.6 (<10.0) mg/L Total Protein 7.4 (6.3-8.2) g/dL Albumin 4.4 (3.5-5.0) g/dL Disposition Clinical Impression: Pain following surgery or procedure Disposition: HOME SELF-CARE Condition: Good Additional Instructions: Please follow-up with Dr. Berg at the pain center if no improvement in symptoms. Please return to the emergency department if you develop any fevers or severe pain. Please follow up with primary care provider within 1-2 days. Return to emergency department if symptoms should worsen or any concerns arise. Is patient prescribed a controlled substance at d/c from ED?: No Referrals: Leatha Hernandez MD [Primary Care Provider] - 1-2 days Time of Disposition: 16:49
--- NOTE | 2017-11-16 15:05 | P.CON ---
Consult Note - . Consult date: 11/16/17 Assessment/Plan:: This is a 57-year-old female who had cervical medial branch radiofrequency ablation on the left side last week. She came to the ER today complaining of pain and skin redness in the area of the procedure. She denies any new neurologic changes with no weakness in the upper or lower extremities however she just some numbness in the tips of her hands only in the morning and this usually goes away during the day. I saw the patient in the ER today for this consultation. By physical exam she is alert oriented 3 in no apparent distress She has tenderness in the left side of her cervical spine There is slight erythema of the skin in that area There is no skin discharge Muscle strength exam in the upper extremities is normal and symmetrical Range of motion of the cervical spine is decreased towards the right side but this has not changed from before the procedure Plan: We should rule out any infection in the area . I spoke with the patient's nurse to order a few tests including CBC with differential, CRP, ESR. I left my cell phone number to be called back with the results and if the results are indicating any possible infection then we will order a cervical spine MRI. If the blood work results are normal then the patient can go home however she should come back if the symptoms get worse and then we can order an MRI on the cervical spine with and without contrast.
[2017-11-16 15:42] LABS: Basophils % (A) 0 %; Eosinophils # (A) 0.2 k/uL (0-0.7); Eosinophils % (A) 2 %; HCT 43.5 % (34.0-46.0); HGB 14.8 gm/dL (11.4-16.0); Lymphocytes # (A) 2.5 k/uL (1.0-4.8); Lymphocytes % (A) 22 %; MCH 29.3 pg (25.0-35.0); MCV 86.1 fL (80.0-100.0); Mean Platelet Volume 7.5; Monocytes # (A) 0.7 k/uL (0-1.0); Monocytes % (A) 6 %; Neutrophils % (A) 68 %; Platelet Count 308 k/uL (150-450); RBC 5.05 m/uL (3.80-5.40); RDW 13.4 % (11.5-15.5); WBC 11.7 k/uL (3.8-10.6)
[2017-11-16 15:55] LABS: ALT 28 U/L (9-52); AST 25 U/L (14-36); Albumin 4.4 g/dL (3.5-5.0); Alkaline Phosphatase 102 U/L (38-126); Anion Gap 9 mmol/L; Blood Urea Nitrogen 12 mg/dL (7-17); C Reactive Protein 7.6 mg/L (<10.0); Calcium 9.7 mg/dL (8.4-10.2); Carbon Dioxide 23 mmol/L (22-30); Chloride 109 mmol/L (98-107); Glucose 150 mg/dL (74-99); Potassium 4.6 mmol/L (3.5-5.1); Sodium 141 mmol/L (137-145); Total Bilirubin 0.6 mg/dL (0.2-1.3); Total Protein 7.4 g/dL (6.3-8.2)
[2017-11-16 16:36] LABS: Erythrocyte Sedimentation Rate 20 mm/hr (0-20)
[2017-11-16 17:03] VITALS: BP 127/75; PULSE 88; TEMP 98
== END 2017-11-16 17:00 | disposition home or self-care (01) ==
LOC: EC 13:44
DX: M54.2 Cervicalgia (principal); G89.18 Other acute postprocedural pain; E11.9 Type 2 diabetes mellitus without complications; I10 Essential (primary) hypertension; F17.200 Nicotine dependence, unspecified, uncomplicated; Z86.73 Personal history of transient ischemic attack (TIA), and cerebral infarction without residual deficits; Z79.84 Long term (current) use of oral hypoglycemic drugs; Z79.899 Other long term (current) drug therapy; Z88.6 Allergy status to analgesic agent; Z91.048 Other nonmedicinal substance allergy status; Z88.8 Allergy status to other drugs, medicaments and biological substances
CPT/HCPCS: 36415; 80053; 85025; 85652; 86140; 87040; 99284

== ENCOUNTER → 2017-11-20 | Outpatient (CLI) | payer OTHER ==
--- NOTE | 2017-11-20 23:07 | MR ---
EXAMINATION TYPE: MR cervical spine wo/w con DATE OF EXAM: 11/20/2017 COMPARISON: 01/26/2017 HISTORY: Neck pain TECHNIQUE: Multiplanar, multisequence images of the cervical spine were acquired utilizing 7.5 mL intravenous ga dolinium contrast. Diffusion weighted imaging was performed. These cervical vertebra have normal spacing and alignment. The posterior elements appear intact. Brai nstem appears intact. There is no compression fracture. There is no cervical paraspinal mass. The con trast images show no pathologic enhancement. There is no spinal stenosis. There is very small posteri or c 4 5 disc bulge. Cervical spinal cord and brainstem have normal signal pattern. There is no edema . IMPRESSION: Minute posterior disc bulge at C4-5. No significant change compared to old exam.
== END | disposition home or self-care (01) ==
LOC: RADMRIMAIN 21:30
PROVIDERS: ATTEND Anesthesiology
DX: M50.221 Other cervical disc displacement at C4-C5 level (principal)
CPT/HCPCS: 72156; A9581

== ENCOUNTER → 2017-12-14 | Outpatient (CLI) | payer OTHER ==
[2017-12-14 14:38] VITALS: BP 170/95; PULSE 115; RESP 20; TEMP 98.4
--- NOTE | 2017-12-14 15:28 | P.PAINPG ---
Subjective Progress Note Date: 12/14/17 This is followed visit for this 57 years old female with a chronic history of severe neck pain, diagnosed with cervical spondylosis, with done to date Lessig medial branch block cervical area and she had good pain relief, her pain improved more than 70% after each diagnostic medial branch block, electronically was followed with radiofrequency ablation of the medial branch on the right side cervical area, after the procedure patient started complaining of severe pain on the right side cervical area, the pain is continuous , intense pain, patient had MRI of the cervical spine done recently, which showed very small herniated disc at C4 5 levels, she'll continue to use pain medication [place] 5/325 which is not helping to improve her pain Objective - Vital Signs Vital signs: Vital Signs Temp 98.4 F 12/14/17 14:27 Pulse 115 H 12/14/17 14:27 Resp 20 12/14/17 14:27 BP 170/95 12/14/17 14:27 Pulse Ox 98 12/14/17 14:27 Intake & Output 12/13/17 12/14/17 12/14/17 18:59 06:59 18:59 Weight 79.379 kg - Exam Physical Examinations : 1-Constitutiona : Cooperative , not in acute distress . 2-HEENT : nech ; supple , no Lymphadenopathy , normal thyroid size . eyes : no ptosis , no icterus , no photophobia . ENT : normal of hearing , normal oropharynx , no Thrush . 3- Respiratory : Chest clear to auscultations Bilaterally , no wheezing , no Rhonchi . 4- Cardiovascular : regular rate and rhythem , S1 , S2 , no S3 , no S4. 5- Gastrointestinal : abdomen soft no tenderness , bowel sounds , no organomegally . 6- Genitourinary : Defferred . 7- neurologic : Cranial nerve II to XII intact , no focal neurological deffecit . 8-psychatric : alert , oriented X 3 , appropriate affect , intact judgment and insight . 9-Lymphatic : no Lymphadenopathy . 10- musculoskeltal : Cervical Spine motor stregnth in the deltoid and biceps, normal right side , normal Left side motor stregnth biceps and the wrist extensors normal right side ,normal left side . motor stregnth in the triceps muscle . normal Right side , normal Left side deep tendon reflexes normal at the biceps , normal at Brachioradialis , normal at triceps. positive cervical facet loading test on the right . Trigger points identified in the Center right -sided cervical paravertebral muscles Assessment and Plan Plan: Assessment and plan= only severe right-sided neck pain secondary to cervical spondylosis, status post radiofrequency ablation of the right-sided medial paracervical area, likely patient having some myofascial pain in the cervical area, versus neuritis after the radiofrequency She could benefit from Voltaren gel to be applied to the right-sided cervical area, she is not a candidate for NSAIDs orally because she is currently on Plavix Also patient could benefit from trigger point injection, patient is very hesitant to have interventional pain procedures, and she will discuss this option with her primary care, patient could benefit from muscle relaxant Zanaflex 4 mg daily at bedtime, she will follow up with the pain clinic, if she decided to have trigger point injection Time with Patient: Less than 30 PQRS Measure Charge Sheet Measure #130: Documentation of Current Meds in Medical Chart: Patient's medications documented in chart Measure #226: Tobacco Use: Screen & Cessation Intervention: Pt screened for tobacco use AND intervention given Measure #111: Pneumonia Vaccination: Pneumococcal vaccine NOT administered or previously given Measure #47: Advance Care Plan: Advance care planning discussed & documented, pt chose/unable to give Measure #412: Opioid Treatment Agreement: No documentation of signed opioid treatment agreement Measure #408: Opioid Therapy Follow-up Evaluation: Patient had NO f/u eval minimum every 3 months during opioid therapy Measure #317: Preventitive Care & Scrn High Bld Press & F/U: Pre-hypertensive or hypertensive BP documented, pt will f/u with PCP Measure #128: Body Mass Index (BMI) Screening & Follow-up: BMI documented ABOVE normal parameters - f/u documented Measure #131: Pain Assessment & Follow-up: Pain positive & plan documented, Follow-up scheduled Measure #431: Unhealthy Alcohol Use Preventative Care & Scrn: Patient not identified as an unhealthy alcohol user PQRS Narrative: Smoking Status Current every day smoker Do You Want the Pneumonia No Vaccine AT THIS TIME? Blood Pressure 170/95 Pain Intensity [Neck] 9 Scale Used Numeric (1 - 10) Hx Alcohol Use (MH) No Home Medications: Ambulatory Orders Benazepril HCl 40 mg PO DAILY 12/11/15 Atorvastatin [Lipitor] 40 mg PO HS #30 tab 12/14/15 Clopidogrel [Plavix] 75 mg PO DAILY #30 tablet 12/14/15 amLODIPine [Norvasc] 5 mg PO DAILY 05/14/17 glipiZIDE [Glucotrol] 5 mg PO AC-SUPPER 05/14/17 Hydrocodone/Acetaminophen [[place] 5-325] 1 - 2 tab PO Q6HR PRN 11/16/17 Controlled Substance Measures - Controlled Substance Measures Is patient prescribed a controlled substance at discharge?: Yes When asked, does pt state using other controlled substances?: No If prescribed controlled substance>3 days was MAPS reviewed?: Yes If Rx opioid, was Start Talking consent form obtained?: Yes If opioid is for acute pain is fill amount 7 days or less?: No Was information provided regarding opioid addiction?: Yes
== END | disposition home or self-care (01) ==
LOC: PNWHC3 14:02
PROVIDERS: ATTEND Specialist
DX: M47.812 Spondylosis without myelopathy or radiculopathy, cervical region (principal); F17.200 Nicotine dependence, unspecified, uncomplicated; Z79.899 Other long term (current) drug therapy; Z79.02 Long term (current) use of antithrombotics/antiplatelets; Z98.890 Other specified postprocedural states
CPT/HCPCS: 99211

== ENCOUNTER → 2018-02-16 | Outpatient (CLI) | payer OTHER ==
[2018-02-16 14:49] VITALS: BP 127/78; PULSE 87; TEMP 98.1; BMI 29.3
--- NOTE | 2018-02-16 15:21 | P.HPOB ---
History of Present Illness H&P Date: 02/16/18 Chief Complaint: The patient is here for her routine gynecologic exam and mammogram. This is a 57-year-old with an LMP of 2010. The patient is without gynecologic complaints. She denies any postmenopausal bleeding. Review of Systems The patient has gained 7 pounds over the last year. She denies cardiac or G.I. problems. Respiratory: she's getting over a cold. Past Medical History Past Medical History: CVA/TIA (2015), Diabetes Mellitus (Type II diabetes), GERD /Reflux, Hyperlipidemia, Hypertension Additional Past Medical History / Comment(s): 2010/ TIA, pain rt neck, shoulder and arm with weakness and limited movement of rt arm. 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 She had a cold knife colonization of the cervix in 2008. She has no other history of STDs. History of Any Multi-Drug Resistant Organisms: None Reported Past Surgical History: Orthopedic Surgery (Right arm surgery, left ankle surgery and left knee surgery) Additional Past Surgical History / Comment(s): left knee and ankle , RIGHT SHOULDER SURGERY, cold knife colonization of the cervix in 2008. Colonoscopy 2008. Past Anesthesia/Blood Transfusion Reactions: No Reported Reaction Additional Past Anesthesia/Blood Transfusion Reaction / Comment(s): "COULD FEEL EVERYTHING THEY WERE DOING ON MY BACK THE LAST PAIN PROCEDURE" Past Psychological History: No Psychological Hx Reported Smoking Status: Current every day smoker (About 1 to 2 cigarettes per day. Previously heavier smoker.) Past Alcohol Use History: None Reported Additional Past Alcohol Use History / Comment(s): smoker since age 12 SMOKES 1/ 2ppd Past Drug Use History: Marijuana (In the past) Additional History: She is and unemployed. - Past Family History Mother Family Medical History: Diabetes Mellitus Father Family Medical History: Myocardial Infarction ([place]) Sister(s) Family Medical History: Cancer (Cervical cancer) Brother(s) Additional Family Medical History / Comment(s): patient states her 2 brothers of AIDS Medications and Allergies Home Medications Medication Instructions Recorded Confirmed Type Benazepril HCl 40 mg PO DAILY 12/11/15 02/16/18 History Atorvastatin [Lipitor] 40 mg PO HS #30 tab 12/14/15 02/16/18 Rx Clopidogrel [Plavix] 75 mg PO DAILY #30 tablet 12/14/15 02/16/18 Rx amLODIPine [Norvasc] 5 mg PO DAILY 05/14/17 02/16/18 History glipiZIDE [Glucotrol] 5 mg PO AC-SUPPER 05/14/17 02/16/18 History Hydrocodone/Acetaminophen [[place] 1 - 2 tab PO Q6HR PRN 11/16/17 02/16/18 History 5-325] Allergies Allergy/AdvReac Type Severity Reaction Status Date / Time prochlorperazine Allergy Severe Anaphylaxis Verified 02/16/18 14:45 [From Compazine] prochlorperazine edisylate Allergy Severe Anaphylaxis Verified 12/14/17 14:26 [From Compazine] prochlorperazine maleate Allergy Severe Anaphylaxis Verified 02/16/18 14:45 [From Compazine] adhesive tape Allergy Rash/Hives Verified 02/16/18 14:45 aspirin AdvReac bruising Verified 02/16/18 14:45 Exam Vital Signs Temp Pulse BP 02/16/18 14:45 98.1 F 87 127/78 Intake and Output 02/16/18 02/16/18 02/16/18 06:59 14:59 22:59 Other: Weight 77.564 kg Height 5'4", weight 171 pounds, BMI 29.4. This is a well-developed well-nourished white female who is alert and oriented times 3 in no acute distress. HEENT: Within normal limits. NECK: Supple without mass or thyromegaly. CHEST AND LUNGS: Clear to auscultation. HEART: Regular rate and rhythm. BREASTS: Are without mass or discharge. AXILLARY EXAM: Negative for adenopathy. BACK: Negative for CVA tenderness. ABDOMEN: Soft, nontender, without palpable masses. PELVIC EXAM: Normal external genitalia with mild atrophy. Cervix and vagina appear normal of atrophy. There is no unusual discharge. There is no evidence of prolapse. The uterus is midposition, nongravid size and nontender. There are no palpable adnexal masses or tenderness. RECTAL EXAM: vaginal exam is negative for mass or tenderness and is negative for occult blood. EXTREMITIES: Nontender. IMPRESSION: 1. 57-year-old menopausal female with normal gynecologic exam. 2. History of osteopenia. PLAN: 1. Pap smear was deferred since she had a normal one last year. 2. Self breast awareness was discussed with the patient. 3. Screening mammogram will be done today. 4. Osteoporosis prevention was discussed. Bone density screening will be done today. 5. She will return in one year.
--- NOTE | 2018-02-17 12:17 | MM ---
Reason for exam: screening (asymptomatic). Last mammogram was performed 1 year ago. History: Patient is postmenopausal and had first child at age 33. Physical Findings: A clinical breast exam by your physician is recommended on an annual basis and results should be correlated with mammographic findings. MG Screening Mammo w CAD Bilateral CC and MLO view(s) were taken. Prior study comparison: February 03, 2017, bilateral MG screening mammo w CAD. April 11, 2014, bilateral MG screening mammo w CAD. There are scattered fibroglandular densities. There is a 3mm right lower inner quadrant mass at middle depth. Benign appearing bilateral calcifications. No suspicious abnormality on left breast. ASSESSMENT: Incomplete: need additional imaging evaluation, BI-RAD 0 RECOMMENDATION: Special view mammogram of the right breast. If lesion persists on supplemental views, image directed ultrasound is recommended. [facility] will attempt to contact patient to return for supplemental views and ultrasound if indicated.
--- NOTE | 2018-02-17 16:43 | BD ---
EXAMINATION TYPE: Axial Bone Density DATE OF EXAM: 02/16/2018 COMPARISON: NONE CLINICAL HISTORY: Z 78.0, postmenopausal without hormone replacement Height: 5 FT 3 IN Weight: 169 FRAX RISK QUESTIONS: Secondary Osteoporosis: Current Tobacco Use: YES RISK FACTORS HISTORY OF: Active: YES Postmenopausal woman: AGE 51 MEDICATIONS: Additional Medications: CLOPIDOGREL,BEBAZEPRIL,AMLODIPINE, GLIPIZIDE, ATORVASTATIN,HYDROCODONE, TIZAN IDINE HCL, DICLOFENAC Additional History: EXAM MEASUREMENTS: Bone mineral densitometry was performed using the [employer] Software System. Bone mineral density as measured about the Lumbar spine is: ----- L1-L4(G/cm2): 1.142 T Score Values are as follows: ----- L2: 0.5 ----- L3: -0.2 ----- L4: -1.0 ----- L1-L4: -0.3 Bone mineral density has: DECREASED -1.5 % since study of: 2014 Bone mineral density about the R hip (g/cm2): 0.826 Bone mineral density about the L hip (g/cm2): 0.855 T Score values are as follows: -----R Neck: -1.5 -----L Neck: -1.3 -----R Total: 0.0 -----L Total: 0.0 Bone mineral density has: DECREASED -1.7 % since study of: 2014 IMPRESSION: Osteopenia (T Score between -2.5 and -1). There is slightly increased risk of fracture and the patient may be considered for treatment. Re-Screen 2-5 years. NOTE: T-SCORE=SD OF THE YOUNG ADULT MEAN.
== END | disposition home or self-care (01) ==
LOC: WWCWWP 14:16
PROVIDERS: ATTEND Obstetrics & Gynecology
DX: Z12.31 Encounter for screening mammogram for malignant neoplasm of breast (principal); M85.80 Other specified disorders of bone density and structure, unspecified site; Z78.0 Asymptomatic menopausal state
CPT/HCPCS: 77067; 77080

== ENCOUNTER → 2018-02-18 | Outpatient (CLI) | payer OTHER ==
--- NOTE | 2018-02-19 08:11 | MM ---
Reason for exam: additional evaluation requested from abnormal screening. Last mammogram was performed less than 1 month ago. History: Patient is postmenopausal and had first child at age 33. Physical Findings: Nurse did not find any significant physical abnormalities on exam. MG Work Up Mamm w CAD RT Spot compression CC, spot compression MLO, and LM view(s) were taken of the right breast. Prior study comparison: February 16, 2018, bilateral MG screening mammo w CAD. February 03, 2017, bilateral MG screening mammo w CAD. There is a 4mm lower inner quadrant mass 7-8cm from nipple. These results were verbally communicated with the patient and result sheet given to the patient on 02/18/18. ASSESSMENT: Incomplete: need additional imaging evaluation, BI-RAD 0 RECOMMENDATION: Ultrasound of the right breast. (upper inner quadrant)
--- NOTE | 2018-02-19 08:27 | USB ---
Reason for exam: additional evaluation requested from abnormal screening. History: Patient is postmenopausal and had first child at age 33. US Breast Workup Limited RT Right limited breast ultrasound including focal area of concern, retroareolar and axilla demonstrates a 0.5 x 0.3 x 0.4cm hypoechoic lesion at 2:30-3 o'clock. New on mammogram. Attempt aspiration if unsuccessful convert to biopsy. These results were verbally communicated with the patient and result sheet given to the patient on 02/18/18. ASSESSMENT: Suspicious, BI-RAD 4 RECOMMENDATION: Ultrasound core biopsy of the right breast. Called Dr. Lucas with mammographic findings and has scheduled an appointment for the patient for 03/04/18 at 11:[address] Hoyt. Biopsy scheduled for 03/05/18 at 11:30. PRELIMINARY REPORT CALLED AND FAXED TO DR. HOYT ON 02/19/18.
== END | disposition home or self-care (01) ==
LOC: RADMAMWWP 14:45
PROVIDERS: ATTEND Obstetrics & Gynecology
DX: R92.8 Other abnormal and inconclusive findings on diagnostic imaging of breast (principal)
CPT/HCPCS: 77065

== ENCOUNTER → 2018-03-05 | Outpatient (CLI) | payer OTHER ==
[2018-03-05 08:40] VITALS: BP 162/92; PULSE 101; RESP 20; TEMP 97.6; BMI 31.8
--- NOTE | 2018-03-05 09:23 | P.GSHP ---
History of Present Illness H&P Date: 03/05/18 Chief Complaint: abnormal mammogram The patient is a 57-year-old white female who had a routine screening mammogram performed 1020 318. The patient on mammogram was noted to have no abnormalities of concern in the left breast. However in the right breast there was a 3 mm right lower inner quadrant mass at mid-depth. She subsequently had on 1020 518 a diagnostic mammogram and ultrasound performed. On the diagnostic mammogram she was noted to have persistence of the area of concern. On ultrasound she was noted to have a 0.5 cm lesion between 2:30 and 3:00 felt to correspond to that which was seen on the mammogram. Attempted aspiration was recommended if unsuccessful convert to biopsy. The patient denies any masses or changes in her breasts. She has not had any nipple discharge or skin changes. She has not had any surgery in her breast, no trauma to her breasts, no infection in her breasts. Family history: sister: Uterine cancer at 55 maternal grandmother: bladder cancer Hormonal History: menarche: 12 : 1, 1 child, breast fed: no, age at first 33 menopause: 50 BCP: 20 years hormones: none Past Surgical History: 1. ankle: dislocated 2. knee: torn ligament 3. shoulder: torn rotator cuff (? work related) 4. operation on cervix ? Past Medical History: 1. HTN 2. type 2 DM 3. high cholesterol 4. CVA; ?stress related, right side numb 5. heart murmur 6. chronic neck and shoulder pain Social History: smoke: 1/2 PPD, since 15 alcohol: none drugs: none - Constitutional Constitutional: Denies chills, Denies fever - EENT Eyes: denies blurred vision, denies pain Ears: deny: decreased hearing, tinnitus Ears, nose, mouth and throat: Reports headache - Breasts Breasts: bilateral: as per HPI - Cardiovascular Cardiovascular: Reports as per HPI - Respiratory Respiratory: Denies cough, Denies 7 - Gastrointestinal Gastrointestinal: Denies abdominal pain, Denies diarrhea, Denies nausea, Denies vomiting - Genitourinary (Female) Genitourinary: Denies dysuria, Denies hematuria - Menstruation Menstruation: Reports postmenopausal - Musculoskeletal Musculoskeletal: Reports limitation of motion, Reports muscle weakness Musculoskeletal: bilateral: as per HPI - Integumentary Integumentary: Denies pruritus, Denies rash - Neurological Comment: CVA - Psychiatric Psychiatric: Denies anxiety, Denies depression - Endocrine Comment: type 2 DM - Hematologic/Lymphatic Comment: plavix - Allergic/Immunologic Comment: as listed Past Medical History Past Medical History: CVA/TIA, Diabetes Mellitus, GERD/Reflux, Hyperlipidemia, Hypertension Additional Past Medical History / Comment(s): 2010/ TIA, pain rt neck, shoulder and arm with weakness and limited movement of rt arm. 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 She had a cold knife colonization of the cervix in 2008. She has no other history of STDs. History of Any Multi-Drug Resistant Organisms: None Reported Past Surgical History: Orthopedic Surgery Additional Past Surgical History / Comment(s): left knee and ankle , RIGHT SHOULDER SURGERY, cold knife colonization of the cervix in 2008. Colonoscopy 2008. Past Anesthesia/Blood Transfusion Reactions: No Reported Reaction Additional Past Anesthesia/Blood Transfusion Reaction / Comment(s): "COULD FEEL EVERYTHING THEY WERE DOING ON MY BACK THE LAST PAIN PROCEDURE" Past Psychological History: No Psychological Hx Reported Smoking Status: Current some day smoker Past Alcohol Use History: None Reported Additional Past Alcohol Use History / Comment(s): smoker since age 12 SMOKES 1/ 2ppd Past Drug Use History: Marijuana - Past Family History Mother Family Medical History: Diabetes Mellitus Father Family Medical History: Myocardial Infarction ([place]) Sister(s) Family Medical History: Cancer Additional Family Medical History / Comment(s): uterine cancer Brother(s) Additional Family Medical History / Comment(s): patient states her 2 brothers of AIDS Medications and Allergies Home Medications Medication Instructions Recorded Confirmed Type Benazepril HCl 40 mg PO DAILY 12/11/15 03/05/18 History Atorvastatin [Lipitor] 40 mg PO HS #30 tab 12/14/15 03/05/18 Rx Clopidogrel [Plavix] 75 mg PO DAILY #30 tablet 12/14/15 03/05/18 Rx amLODIPine [Norvasc] 5 mg PO DAILY 05/14/17 03/05/18 History glipiZIDE [Glucotrol] 5 mg PO AC-SUPPER 05/14/17 03/05/18 History Hydrocodone/Acetaminophen [[place] 1 - 2 tab PO Q6HR PRN 11/16/17 03/05/18 History 5-325] tiZANidine HCL 4 mg PO DAILY 03/05/18 03/05/18 History Allergies Allergy/AdvReac Type Severity Reaction Status Date / Time prochlorperazine Allergy Severe Anaphylaxis Verified 02/22/18 13:42 [From Compazine] prochlorperazine edisylate Allergy Severe Anaphylaxis Verified 02/22/18 13:42 [From Compazine] prochlorperazine maleate Allergy Severe Anaphylaxis Verified 02/22/18 13:42 [From Compazine] adhesive tape Allergy Rash/Hives Verified 02/22/18 13:42 aspirin AdvReac bruising Verified 02/22/18 13:42 Surgical - Exam Vital Signs Temp Pulse Resp BP 97.6 F 101 H 20 162/92 03/05/18 08:35 03/05/18 08:35 03/05/18 08:35 03/05/18 08:35 BMI 31.8 - General well developed, well nourished, no distress - Eyes normal ocular movement - ENT no hearing loss, no congestion - Neck no masses, trachea midline - Respiratory normal respiratory effort, clear to auscultation - Cardiovascular Heart Sounds: normal: S1, S2 - Abdomen Abdomen: soft, non tender, no guarding, no rigid, no rebound - Integumentary normal turger - Psychiatric oriented to time, oriented to person, oriented to place, speech is normal, memory intact Breast examination: Right breast: Multi-positional exam no dominant masses or nodules of concern Right axilla: No adenopathy of concern Left breast: Multi-positional exam no dominant masses or nodules of concern Left axilla: No adenopathy of concern Results Patient radiographs and ultrasound report reviewed Assessment and Plan Assessment: Impression: 1. Abnormal mammogram and ultrasound of the right breast 2. History of hypertension 3. History of high cholesterol 4. Prior CVA 5. Right shoulder pain Plan: 1. Ultrasound-guided core biopsy/possible aspiration lesion in the right breast 2. Medical management of medical problems 3. Follow-up with Dr. Shukla next week for results of biopsy Risks and benefits of ultrasound core biopsy were discussed with the patient. She and her understand and she is scheduled for this in the near future. Cc: Dr. Hernandez, Dr. Lucas
== END | disposition home or self-care (01) ==
LOC: WWCWWP 08:23
PROVIDERS: ATTEND Surgery
DX: Z53.9 Procedure and treatment not carried out, unspecified reason (principal)

== ENCOUNTER → 2018-03-05 | Outpatient (CLI) | payer OTHER ==
[2018-03-05 10:18] LABS: HCT 43.5 % (34.0-46.0); HGB 14.4 gm/dL (11.4-16.0); MCV 87.9 fL (80.0-100.0); Mean Platelet Volume 7.5; Platelet Count 377 k/uL (150-450); RBC 4.95 m/uL (3.80-5.40); RDW 13.1 % (11.5-15.5); WBC 16.9 k/uL (3.8-10.6)
[2018-03-05 17:09] LABS: Albumin 4.5 g/dL (3.80-4.90); Albumin/Globulin Ratio 2.14 (1.20-2.10); Anion Gap 7.7 mmol/L (4.00-12.00); Calcium 9.4 mg/dL (8.7-10.3); Carbon Dioxide 25.3 mmol/L (21.6-31.8); Globulin 2.1 g/dL (2.1-3.7); LDL Cholesterol,Calculated 70.8 mg/dL (0.0-131.0); Potassium 3.7 mmol/L (3.5-5.5); Total Bilirubin 0.6 mg/dL (0.3-1.2); Total Protein 6.6 g/dL (6.2-8.2); VLDL Calculation 25.2 mg/dL (5.00-40.00)
[2018-03-05 17:18] LABS: T4, Free (Free Thyroxine) 1.3 ng/dL (0.80-1.80)
== END | disposition home or self-care (01) ==
LOC: LABWHC1 09:32
PROVIDERS: ATTEND Family Medicine
DX: E11.9 Type 2 diabetes mellitus without complications (principal); E78.5 Hyperlipidemia, unspecified; E06.3 Autoimmune thyroiditis; I10 Essential (primary) hypertension
CPT/HCPCS: 36415; 80053; 80061; 83036; 84439; 84443; 85027

== ENCOUNTER → 2018-03-08 | Outpatient (CLI) | payer OTHER ==
[2018-03-08 13:21] VITALS: BP 179/87; PULSE 101; RESP 20
--- NOTE | 2018-03-08 13:52 | P.PN ---
Subjective Progress Note Date: 03/08/18 This is followed visit for this 57 years old female with a chronic history of severe neck pain, diagnosed with cervical spondylosis, we have done Diagnostic medial branch block cervical area ,and she had good pain relief, her pain improved more than 70% after each diagnostic medial branch block, later on it was followed with radiofrequency ablation of the medial branch on the right side cervical area, after the procedure patient started complaining of severe pain on the right side cervical area, the pain is continuous , intense pain, patient had MRI of the cervical spine done recently, which showed very small herniated disc at C4 5 levels, Patient denies any motor or sensory deficit she denies any fever or night sweats , and she is currently using Zanaflex 4 mg daily at bedtime, patient done physical therapy on multiple occasions without any benefit Physical Examinations : 1-Constitutiona : Cooperative , not in acute distress . 2-HEENT : nech ; supple , no Lymphadenopathy , normal thyroid size . eyes : no ptosis , no icterus , no photophobia . ENT : normal of hearing , normal oropharynx , no Thrush . 3- Respiratory : Chest clear to auscultations Bilaterally , no wheezing , no Rhonchi . 4- Cardiovascular : regular rate and rhythem , S1 , S2 , no S3 , no S4. 5- Gastrointestinal : abdomen soft no tenderness , bowel sounds , no organomegally . 6- Genitourinary : Defferred . 7- neurologic : Cranial nerve II to XII intact , no focal neurological deffecit . 8-psychatric : alert , oriented X 3 , appropriate affect , intact judgment and insight . 9-Lymphatic : no Lymphadenopathy . 10- musculoskeltal : Cervical Spine motor stregnth in the deltoid and biceps, normal right side , normal Left side motor stregnth biceps and the wrist extensors normal right side ,normal left side . motor stregnth in the triceps muscle . normal Right side , normal Left side deep tendon reflexes normal at the biceps , normal at Brachioradialis , normal at triceps. positive cervical facet loading test on the right . Trigger points identified in the Center right -sided cervical paravertebral muscles Assessment and plan= only severe right-sided neck pain secondary to cervical spondylosis, status post radiofrequency ablation of the right-sided medial paracervical area, likely patient having some myofascial pain in the cervical area, she is not a candidate for NSAIDs orally because she is currently on Plavix patient could benefit from trigger point injection, patient is very hesitant to have interventional pain procedures, and she refuses to have a trigger point injection, Patient reports that she she is done physical therapy previously without any benefit, and patient reports she doesn't want to have any surgical intervention She doesn't want to have any pain management procedure , the best option at this point is to increase her Zanaflex 4 mg twice a day dispense 60 with 3 refills And she will follow up with the pain clinic when necessary PQRS Measure Charge Sheet Measure #130: Documentation of Current Meds in Medical Chart: Patient's medications documented in chart Measure #226: Tobacco Use: Screen & Cessation Intervention: Pt screened for tobacco use AND intervention given Measure #111: Pneumonia Vaccination: Pneumococcal vaccine NOT administered or previously given Measure #47: Advance Care Plan: Advance care planning discussed & documented, pt chose/unable to give Measure #412: Opioid Treatment Agreement: No documentation of signed opioid treatment agreement Measure #408: Opioid Therapy Follow-up Evaluation: Patient had NO f/u eval minimum every 3 months during opioid therapy Measure #317: Preventitive Care & Scrn High Bld Press & F/U: Pre-hypertensive or hypertensive BP documented, pt will f/u with PCP Measure #128: Body Mass Index (BMI) Screening & Follow-up: BMI documented ABOVE normal parameters - f/u documented Measure #131: Pain Assessment & Follow-up: Pain positive & plan documented, Follow-up scheduled Measure #431: Unhealthy Alcohol Use Preventative Care & Scrn: Patient not identified as an unhealthy alcohol user PQRS Narrative: Objective - Vital Signs Vital signs: Vital Signs Temp Pulse 101 H 03/08/18 13:12 Resp 20 03/08/18 13:12 BP 179/87 03/08/18 13:12 Pulse Ox 97 03/08/18 13:12 Intake & Output 03/07/18 03/08/18 03/08/18 18:59 06:59 18:59 Weight 78.925 kg
== END ==
LOC: PNWHC3 12:40
PROVIDERS: ATTEND Specialist
DX: M47.812 Spondylosis without myelopathy or radiculopathy, cervical region (principal); Z98.890 Other specified postprocedural states
CPT/HCPCS: 99211

== ENCOUNTER → 2018-03-11 | Outpatient (CLI) | payer OTHER ==
[2018-03-11 08:24] VITALS: BP 133/83; PULSE 84; RESP 18; TEMP 98.1; BMI 29.8
--- NOTE | 2018-03-11 09:08 | P.PN ---
Subjective Progress Note Date: 03/11/18 Principal diagnosis: The patient is status post right breast ultrasound core aspiration on The patient is a 57-year-old white female status post right breast aspiration of a cystic lesion at 2:30 on . Pathology revealed degenerating cellular material and clusters of bland apocrine cells consistent with benign apocrine cyst/cyst contents. The patient does not complain of any problems following the aspiration. The area of cystic change was resolved with the aspiration. Objective - Vital Signs Vital signs: Vital Signs Temp 98.1 F 03/11/18 08:15 Pulse 84 03/11/18 08:15 Resp 18 03/11/18 08:15 BP 133/83 03/11/18 08:15 Pulse Ox 99 03/11/18 08:15 Intake & Output 03/10/18 03/11/18 03/11/18 18:59 06:59 18:59 Weight 78.925 kg - Exam BMI 29.9 - Constitutional General appearance: Present: average body habitus - EENT Eyes: Present: EOMI ENT: Present: hearing grossly normal - Neck Neck: Present: normal ROM - Respiratory Details: Initial wheezing at the left base which cleared with deep breaths Respiratory: bilateral: CTA - Cardiovascular Rhythm: regular Heart sounds: normal: S1, S2 - Gastrointestinal General gastrointestinal: Present: soft - Integumentary Integumentary Comment(s): The area of core biopsy has mild ecchymosis which is resolving, no evidence of infection, no evidence of hematoma on palpation - Musculoskeletal Musculoskeletal: Present: gait normal - Psychiatric Psychiatric: Present: A&O x's 3, appropriate affect, intact judgment & insight Assessment and Plan Assessment: Impression: 1. Patient status post right breast aspiration of lesion which is benign 2. Ultrasound report reviewed Plan: 1. Results of the aspiration have been discussed with the patient she will follow up in 6 months for repeat right breast mammogram and ultrasound 2. Physician exam in 6 months time Cc: Dr. Hernandez
== END | disposition home or self-care (01) ==
LOC: WWCWWP 08:10
PROVIDERS: ATTEND Surgery
DX: Z53.9 Procedure and treatment not carried out, unspecified reason (principal)

== ENCOUNTER → 2018-09-06 | Outpatient (CLI) | payer OTHER ==
--- NOTE | 2018-09-07 08:02 | MM ---
Reason for exam: follow-up at short interval from prior study. Last mammogram was performed 6 months ago. History: Patient is postmenopausal and had first child at age 33. Benign US breast aspiration single RT of the right breast, March 05, 2018. Physical Findings: Nurse did not find any significant physical abnormalities on exam. MG Diagnostic Mammo RT w CAD CC and MLO view(s) were taken of the right breast. Prior study comparison: March 05, 2018, right breast MG diagnostic mammo RT wo CAD. February 18, 2018, right breast MG work up mamm w CAD RT. There are scattered fibroglandular densities. Microclip 2 o'clock position from recent cyst aspiration. A few benign oil cysts. Tiny, less than 5mm nodule posterior superior right MLO view. These results were verbally communicated with the patient and result sheet given to the patient on 09/06/18. ASSESSMENT: Incomplete: need additional imaging evaluation, BI-RAD 0 RECOMMENDATION: Ultrasound of the right breast.
--- NOTE | 2018-09-07 08:04 | USB ---
Reason for exam: additional evaluation requested from abnormal screening. History: Patient is postmenopausal and had first child at age 33. Benign US breast aspiration single RT of the right breast, March 05, 2018. US Breast Limited RT Right limited breast ultrasound including focal area of concern, retroareolar and axilla demonstrates a 0.4 x 0.3 x 0.1cm cystic lesion at 1 o'clock may correspond to the mammographic nodule, 6 month follow up mammogram recommended and a 0.2 x 0.2 x 0.1cm cystic lesion at 2 o'clock, previously biopsied/aspirated. Scanned 10-3 o'clock. These results were verbally communicated with the patient and result sheet given to the patient on 09/06/18. ASSESSMENT: Probably benign, BI-RAD 3 RECOMMENDATION: Follow-up diagnostic mammogram of both breasts in 6 months. Back on schedule.
== END | disposition home or self-care (01) ==
LOC: RADMAMWWP 13:27
PROVIDERS: ATTEND Surgery
DX: R92.8 Other abnormal and inconclusive findings on diagnostic imaging of breast (principal)
CPT/HCPCS: 77065

== ENCOUNTER → 2018-10-22 | Outpatient (CLI) | payer OTHER ==
[2018-10-22 16:44] LABS: African American GFR (CKD) 94.2 (60.0-200.0); Albumin 4.3 g/dL (3.80-4.90); Albumin/Globulin Ratio 2.26 (1.60-3.17); Anion Gap 6.2 mmol/L (4.00-12.00); BUN/Creat Ratio 23.75 Ratio (12.00-20.00); Calcium 9.4 mg/dL (8.7-10.3); Carbon Dioxide 22.8 mmol/L (21.6-31.8); Globulin 1.9 g/dL (1.6-3.3); LDL Cholesterol,Calculated 70.6 mg/dL (0.0-131.0); Potassium 4.3 mmol/L (3.5-5.5); Total Bilirubin 0.4 mg/dL (0.2-1.2); Total Protein 6.2 g/dL (6.2-8.2); VLDL Calculation 19.4 mg/dL (5.00-40.00)
[2018-10-22 16:46] LABS: Hemoglobin A1C 7.4 % (4.0-6.0)
== END | disposition home or self-care (01) ==
LOC: LABWHC1 10:36
PROVIDERS: ATTEND Family Medicine
DX: E11.9 Type 2 diabetes mellitus without complications (principal); E78.5 Hyperlipidemia, unspecified
CPT/HCPCS: 36415; 80053; 80061; 83036

== ENCOUNTER → 2019-03-16 | Outpatient (CLI) | payer MEDICARE ==
[2019-03-16 12:30] LABS: Basophils # (A) 0.1 k/uL (0-0.2); Basophils % (A) 1 %; Eosinophils # (A) 0.3 k/uL (0-0.7); Eosinophils % (A) 3 %; HCT 44.5 % (34.0-46.0); HGB 14.9 gm/dL (11.4-16.0); Lymphocytes % (A) 28 %; MCH 29.5 pg (25.0-35.0); MCHC 33.5 g/dL (31.0-37.0); MCV 88.2 fL (80.0-100.0); Monocytes # (A) 0.5 k/uL (0-1.0); Monocytes % (A) 5 %; Neutrophils # (A) 6.4 k/uL (1.3-7.7); Neutrophils % (A) 62 %; Platelet Count 356 k/uL (150-450); RBC 5.04 m/uL (3.80-5.40); RDW 12.9 % (11.5-15.5); WBC 10.4 k/uL (3.8-10.6)
[2019-03-16 20:25] LABS: African American GFR (CKD) 93.5 (60.0-200.0); Anion Gap 8.7 mmol/L (4.00-12.00); BUN/Creat Ratio 11.25 Ratio (12.00-20.00); Calcium 9.2 mg/dL (8.7-10.3); Carbon Dioxide 25.3 mmol/L (21.6-31.8); Non-African American GFR(CKD) 80.7 (60.0-200.0); Potassium 3.8 mmol/L (3.5-5.5)
[2019-03-16 20:26] LABS: Chol/HDL Ratio 3.58; LDL Cholesterol,Calculated 80.4 mg/dL (0.0-131.0); VLDL Calculation 35.6 mg/dL (5.00-40.00)
[2019-03-17 05:20] LABS: Hemoglobin A1C 6.5 % (4.0-6.0)
== END | disposition home or self-care (01) ==
LOC: LABWHC1 11:55
PROVIDERS: ATTEND Family Medicine
DX: E78.5 Hyperlipidemia, unspecified (principal); E11.9 Type 2 diabetes mellitus without complications
CPT/HCPCS: 36415; 80048; 80061; 82043; 82570; 83036; 85025

== ENCOUNTER 2020-01-22 20:50 | Emergency (ER) | payer MEDICARE ==
[2020-01-22 20:58] VITALS: RESP 18; TEMP 98.1
[2020-01-22] MEDS ORDERED: ONDANSETRON 4 MG/2 ML VIAL IVP STA (21:12)
[2020-01-22] MEDS ORDERED: SODIUM CHLORIDE 0.9% 1,000 ML IV STA (21:12)
--- NOTE | 2020-01-22 21:14 | ED ---
Nausea/Vomiting/Diarrhea HPI - General Chief complaint: Nausea/Vomiting/Diarrhea Stated complaint: Vomiting Time Seen by Provider: 01/22/20 21:07 Source: patient Mode of arrival: ambulatory Limitations: no limitations - History of Present Illness Initial comments: Patient is a 59-year-old female presenting to the emergency department with a chief complaint of nausea vomiting diarrhea. States her symptoms were ongoing for about 3 days. Patient states her daughter's boyfriend has been staying over their house for 5 days and he had the exact same symptoms. Patient states she is not bent able to tolerate much fluids or solids. States sometimes she does have abdominal discomfort after having vomited episodes which eventually subsides. She denies any hematuria, hematochezia or melena. Denies any urinary or vaginal symptoms. No chest pain back in her shortness of breath. She denies any night sweats or chills. - Related Data Home Medications Medication Instructions Recorded Confirmed Benazepril HCl 40 mg PO DAILY 12/11/15 03/11/18 amLODIPine [Norvasc] 5 mg PO DAILY 05/14/17 03/11/18 glipiZIDE [Glucotrol] 5 mg PO AC-SUPPER 05/14/17 03/11/18 Hydrocodone/Acetaminophen [[place] 1 - 2 tab PO Q6HR PRN 11/16/17 03/11/18 5-325] tiZANidine HCL 4 mg PO HS 03/05/18 03/11/18 Previous Rx's Medication Instructions Recorded Atorvastatin [Lipitor] 40 mg PO HS #30 tab 12/14/15 Clopidogrel [Plavix] 75 mg PO DAILY #30 tablet 12/14/15 Ondansetron Odt [Zofran Odt] 4 mg PO Q8HR PRN #20 tab 01/22/20 Allergies Allergy/AdvReac Type Severity Reaction Status Date / Time prochlorperazine Allergy Severe Anaphylaxis Verified 01/22/20 20:58 [From Compazine] prochlorperazine edisylate Allergy Severe Anaphylaxis Verified 01/22/20 20:58 [From Compazine] prochlorperazine maleate Allergy Severe Anaphylaxis Verified 01/22/20 20:58 [From Compazine] adhesive tape Allergy Rash/Hives Verified 01/22/20 20:58 aspirin AdvReac bruising Verified 09/27/20 20:58 Review of Systems ROS Statement: Those systems with pertinent positive or pertinent negative responses have been documented in the HPI. ROS Other: All systems not noted in ROS Statement are negative. Past Medical History Past Medical History: CVA/TIA, Diabetes Mellitus, GERD/Reflux, Hyperlipidemia, Hypertension Additional Past Medical History / Comment(s): 2010/ TIA, pain rt neck, shoulder and arm with weakness and limited movement of rt arm. 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 She had a cold knife colonization of the cervix in 2008. She has no other history of STDs. History of Any Multi-Drug Resistant Organisms: None Reported Past Surgical History: Orthopedic Surgery Additional Past Surgical History / Comment(s): left knee and ankle , RIGHT SHOULDER SURGERY, cold knife colonization of the cervix in 2008. Colonoscopy 2008. Past Anesthesia/Blood Transfusion Reactions: No Reported Reaction Additional Past Anesthesia/Blood Transfusion Reaction / Comment(s): "COULD FEEL EVERYTHING THEY WERE DOING ON MY BACK THE LAST PAIN PROCEDURE" Past Psychological History: No Psychological Hx Reported Smoking Status: Current every day smoker Past Alcohol Use History: None Reported Past Drug Use History: None Reported - Past Family History Mother Family Medical History: Diabetes Mellitus Father Family Medical History: Myocardial Infarction (HI) Sister(s) Family Medical History: Cancer Additional Family Medical History / Comment(s): uterine cancer Brother(s) Additional Family Medical History / Comment(s): patient states her 2 brothers of AIDS General Exam Limitations: no limitations General appearance: alert, in no apparent distress Head exam: Present: atraumatic, normocephalic, normal inspection Eye exam: Present: normal appearance, PERRL, EOMI Pupils: Present: normal accommodation ENT exam: Present: normal exam, normal oropharynx, mucous membranes dry, TM's normal bilaterally, normal external ear exam Neck exam: Present: normal inspection, full ROM. Absent: tenderness Respiratory exam: Present: normal lung sounds bilaterally. Absent: respiratory distress, wheezes, rales Cardiovascular Exam: Present: regular rate, normal rhythm, normal heart sounds GI/Abdominal exam: Present: soft. Absent: distended, tenderness, guarding Extremities exam: Present: normal inspection (Skin tenting), full ROM, normal capillary refill, other (+2 ulnar and radial pulses bilaterally.). Absent: tenderness Back exam: Present: normal inspection, full ROM. Absent: tenderness, CVA tenderness (R), CVA tenderness (L) Neurological exam: Present: alert, oriented X3, normal gait Psychiatric exam: Present: normal affect, normal mood Skin exam: Present: warm, dry, intact, normal color Course Vital Signs 01/22/20 20:55 Temperature 98.1 F Pulse Rate 112 H Respiratory 18 Rate Blood Pressure 150/64 O2 Sat by Pulse 96 Oximetry Medical Decision Making - Medical Decision Making Patient is 59-year-old female presenting to the emergency department with a chief complaint of nausea vomiting diarrhea. On physical examination, patient is applying physical signs of dehydration with dry mucous membranes and skin tenting noted. Patient was given IV fluids and antiemetics. Reevaluation patient reports improvement in symptoms. States the nausea has resolved. I suspect this is gastroenteritis. CBC reveals leukocytosis of 16 K which I suspect secondary to the vomiting. CMP reveals slight decrease in potassium levels at 3.5. Patient was given K-debbie in the ED. UA is unremarkable. Patient will be discharged with Zofran. She was advised to follow the Br[facility] diet. [facility] were thoroughly discussed the patient is an attending agreeable. Case discussed with physician. - Lab Data Result diagrams: 01/22/20 21:15 01/22/20 21:15 Lab Results 01/22/20 01/22/20 01/22/20 Range/Units 21:15 21:15 21:15 WBC 15.6 H (3.8-10.6) k/uL RBC 5.28 (3.80-5.40) m/uL Hgb 15.6 (11.4-16.0) gm/dL Hct 44.5 (34.0-46.0) % MCV 84.2 (80.0-100.0) fL MCH 29.5 (25.0-35.0) pg MCHC 35.0 (31.0-37.0) g/dL RDW 12.5 (11.5-15.5) % Plt Count 437 (150-450) k/uL Neutrophils % 68 % Lymphocytes % 24 % Monocytes % 4 % Eosinophils % 2 % Basophils % 1 % Neutrophils # 10.6 H (1.3-7.7) k/uL Lymphocytes # 3.7 (1.0-4.8) k/uL Monocytes # 0.7 (0-1.0) k/uL Eosinophils # 0.3 (0-0.7) k/uL Basophils # 0.1 (0-0.2) k/uL Sodium 135 L (137-145) mmol/L Potassium 3.4 L (3.5-5.1) mmol/L Chloride 97 L (98-107) mmol/L Carbon Dioxide 29 (22-30) mmol/L Anion Gap 9 mmol/L BUN 11 (7-17) mg/dL Creatinine 0.71 (0.52-1.04) mg/dL Est GFR (CKD-EPI)AfAm >90 (>60 ml/min/1.73 sqM) Est GFR (CKD-EPI)NonAf >90 (>60 ml/min/1.73 sqM) Glucose 186 H (74-99) mg/dL Calcium 9.8 (8.4-10.2) mg/dL Total Bilirubin 0.8 (0.2-1.3) mg/dL AST 31 (14-36) U/L ALT 31 (4-34) U/L Alkaline Phosphatase 106 (38-126) U/L Troponin I (0.000-0.034) ng/mL Total Protein 7.4 (6.3-8.2) g/dL Albumin 4.4 (3.5-5.0) g/dL Lipase 158 (23-300) U/L Urine Color Yellow Urine Appearance Clear (Clear) Urine pH 7.0 (5.0-8.0) Ur Specific [place] 1.015 (1.001-1.035) Urine Protein Negative (Negative) Urine Glucose (UA) Negative (Negative) Urine Ketones Negative (Negative) Urine Blood Negative (Negative) Urine Nitrite Negative (Negative) Urine Bilirubin Negative (Negative) Urine Urobilinogen 8.0 (<2.0) mg/dL Ur Leukocyte Esterase Small H (Negative) Urine RBC <1 (0-5) /hpf Urine WBC 2 (0-5) /hpf Ur Squamous Epith Cells <1 (0-4) /hpf Urine Mucus Rare H (None) /hpf 01/22/20 Range/Units 21:15 WBC (3.8-10.6) k/uL RBC (3.80-5.40) m/uL Hgb (11.4-16.0) gm/dL Hct (34.0-46.0) % MCV (80.0-100.0) fL MCH (25.0-35.0) pg MCHC (31.0-37.0) g/dL RDW (11.5-15.5) % Plt Count (150-450) k/uL Neutrophils % % Lymphocytes % % Monocytes % % Eosinophils % % Basophils % % Neutrophils # (1.3-7.7) k/uL Lymphocytes # (1.0-4.8) k/uL Monocytes # (0-1.0) k/uL Eosinophils # (0-0.7) k/uL Basophils # (0-0.2) k/uL Sodium (137-145) mmol/L Potassium (3.5-5.1) mmol/L Chloride (98-107) mmol/L Carbon Dioxide (22-30) mmol/L Anion Gap mmol/L BUN (7-17) mg/dL Creatinine (0.52-1.04) mg/dL Est GFR (CKD-EPI)AfAm (>60 ml/min/1.73 sqM) Est GFR (CKD-EPI)NonAf (>60 ml/min/1.73 sqM) Glucose (74-99) mg/dL Calcium (8.4-10.2) mg/dL Total Bilirubin (0.2-1.3) mg/dL AST (14-36) U/L ALT (4-34) U/L Alkaline Phosphatase (38-126) U/L Troponin I <0.012 (0.000-0.034) ng/mL Total Protein (6.3-8.2) g/dL Albumin (3.5-5.0) g/dL Lipase (23-300) U/L Urine Color Urine Appearance (Clear) Urine pH (5.0-8.0) Ur Specific [place] (1.001-1.035) Urine Protein (Negative) Urine Glucose (UA) (Negative) Urine Ketones (Negative) Urine Blood (Negative) Urine Nitrite (Negative) Urine Bilirubin (Negative) Urine Urobilinogen (<2.0) mg/dL Ur Leukocyte Esterase (Negative) Urine RBC (0-5) /hpf Urine WBC (0-5) /hpf Ur Squamous Epith Cells (0-4) /hpf Urine Mucus (None) /hpf Disposition Clinical Impression: Nausea vomiting and diarrhea, Gastroenteritis Disposition: HOME SELF-CARE Condition: Stable Instructions (If sedation given, give patient instructions): Gastroenteritis (DC) Additional Instructions: Follow-up with her primary care physician. Return to emergency department if symptoms worsen. Drink plenty of fluids with electrolytes. Take prescribed medication as directed. Eat bananas, rice, applesauce and toast diet. You can use [id number] Imodium for the diarrhea. Prescriptions: Ondansetron Odt [Zofran Odt] 4 mg PO Q8HR PRN #20 tab PRN Reason: Nausea Is patient prescribed a controlled substance at d/c from ED?: No Referrals: None,Stated [Primary Care Provider] - 1-2 days Time of Disposition: 22:42
[2020-01-22] MEDS ORDERED: PANTOPRAZOLE 40 MG/10 ML VIAL IVP STA (21:22)
[2020-01-22 21:35] LABS: Basophils # (A) 0.1 k/uL (0-0.2); Basophils % (A) 1 %; Eosinophils # (A) 0.3 k/uL (0-0.7); Eosinophils % (A) 2 %; HCT 44.5 % (34.0-46.0); HGB 15.6 gm/dL (11.4-16.0); Lymphocytes # (A) 3.7 k/uL (1.0-4.8); Lymphocytes % (A) 24 %; MCH 29.5 pg (25.0-35.0); MCV 84.2 fL (80.0-100.0); Mean Platelet Volume 7.6; Monocytes # (A) 0.7 k/uL (0-1.0); Monocytes % (A) 4 %; Neutrophils # (A) 10.6 k/uL (1.3-7.7); Neutrophils % (A) 68 %; Platelet Count 437 k/uL (150-450); RBC 5.28 m/uL (3.80-5.40); RDW 12.5 % (11.5-15.5); WBC 15.6 k/uL (3.8-10.6)
[2020-01-22 21:39] LABS: Appearance,Urine Clear (Clear); Bilirubin,Urine Negative (Negative); Blood,Urine Negative (Negative); Color,Urine Yellow; Glucose,Urine (UA) Negative (Negative); Ketones,Urine Negative (Negative); Leukocyte Esterase,Urine Small (Negative); Mucus,Urine Rare /hpf; Nitrite,Urine Negative (Negative); Protein,Urine Negative (Negative); RBC,Urine <1 /hpf (0-5); Specific Gravity,Urine 1.015 (1.001-1.035); Squamous Epithelial Cell,Urine <1 /hpf (0-4); WBC,Urine 2 /hpf (0-5)
[2020-01-22 21:41] LABS: ALT 31 U/L (4-34); AST 31 U/L (14-36); African American GFR (CKD) >90 (>60 ml/min/1.73 sqM); Albumin 4.4 g/dL (3.5-5.0); Alkaline Phosphatase 106 U/L (38-126); Anion Gap 9 mmol/L; Blood Urea Nitrogen 11 mg/dL (7-17); Calcium 9.8 mg/dL (8.4-10.2); Carbon Dioxide 29 mmol/L (22-30); Chloride 97 mmol/L (98-107); Glucose 186 mg/dL (74-99); Non-African American GFR(CKD) >90 (>60 ml/min/1.73 sqM); Potassium 3.4 mmol/L (3.5-5.1); Sodium 135 mmol/L (137-145); Total Bilirubin 0.8 mg/dL (0.2-1.3); Total Protein 7.4 g/dL (6.3-8.2)
[2020-01-22] MEDS ORDERED: POTASSIUM CHLORIDE ER 10 MEQ TAB.ER.PRT PO STA (22:38)
[2020-01-22 22:52] VITALS: BP 140/62; PULSE 90
== END 2020-01-22 22:51 | disposition home or self-care (01) ==
LOC: EC 20:50
DX: K52.9 Noninfective gastroenteritis and colitis, unspecified (principal); E86.0 Dehydration; D72.829 Elevated white blood cell count, unspecified; E11.9 Type 2 diabetes mellitus without complications; F17.200 Nicotine dependence, unspecified, uncomplicated; Z79.84 Long term (current) use of oral hypoglycemic drugs; Z79.899 Other long term (current) drug therapy; Z88.8 Allergy status to other drugs, medicaments and biological substances; Z88.6 Allergy status to analgesic agent; Z91.048 Other nonmedicinal substance allergy status; Z86.73 Personal history of transient ischemic attack (TIA), and cerebral infarction without residual deficits
CPT/HCPCS: 36415; 80053; 83690; 84484; 85025; 81001; 96374; 96375; 96361; 99284; J2405; C9113

== ENCOUNTER → 2021-02-28 | Outpatient (CLI) | payer MEDICARE ==
--- NOTE | 2021-03-04 09:55 | MM ---
Reason for exam: screening (asymptomatic). Last mammogram was performed 2 years and 6 months ago. History: Patient is postmenopausal and had first child at age 33. Benign US breast aspiration single RT of the right breast, March 05, 2018. Physical Findings: A clinical breast exam by your physician is recommended on an annual basis and results should be correlated with mammographic findings. MG Screening Mammo w CAD Bilateral CC and MLO view(s) were taken. Prior study comparison: September 06, 2018, right breast MG diagnostic mammo RT w CAD. March 05, 2018, right breast MG diagnostic mammo RT wo CAD. Previous mammotome biopsy in the right breast. No significant changes when compared with prior studies. ASSESSMENT: Benign, BI-RAD 2 RECOMMENDATION: Routine screening mammogram of both breasts in 1 year.
== END | disposition home or self-care (01) ==
LOC: RADMAMWWP 13:47
PROVIDERS: ATTEND Family Medicine
DX: Z12.31 Encounter for screening mammogram for malignant neoplasm of breast (principal); Z78.0 Asymptomatic menopausal state
CPT/HCPCS: 77067

== ENCOUNTER → 2021-04-29 | Outpatient (CLI) | payer MEDICARE ==
--- NOTE | 2021-04-29 11:48 | BD ---
EXAMINATION TYPE: Axial Bone Density DATE OF EXAM: 04/29/2021 COMPARISON: 02.16.2018 CLINICAL HISTORY: 60 YR OLD FEMALE.......ICD-10 CODE: Z78.0 MENOPAUSAL Height: 62.3 Weight: 162 FRAX RISK QUESTIONS: Secondary Osteoporosis: YES 1. Type 1 Diabetes: YES Rheumatoid Arthritis: NO Current Tobacco Use: YES RISK FACTORS HISTORY OF: Diet low in dairy products/other sources of calcium: YES Postmenopausal woman: YES AT ABOUT 52 YRS Hyperparathyroidism: NO Adrenal Insufficiency: NO MEDICATIONS: Additional Medications: BP MEDS, DIABETIC MEDS, GLIPIZIDE, STATIN FOR CHOLESTEROL, CODEINE, BENAZEPRI L, CLOPIDOGREL, AMLODIPINE, , Additional History: DIABETIC, HYPERTENSION, CHOLESTEROL, PAIN, EXAM MEASUREMENTS: Bone mineral densitometry was performed using the [employer] System. Bone mineral density as measured about the Lumbar spine is: ----- L1-L4(G/cm2): 1.073 T Score Values are as follows: ----- L1: -1.8 ----- L2: -1.7 ----- L3: -0.1 ----- L4: -0.2 ----- L1-L4: -0.9 Bone mineral density has: Decreased -3.8% since study of: 02.16.2018 Bone mineral density about the R hip (g/cm2): 0.993 Bone mineral density about the L hip (g/cm2): 0.981 T Score values are as follows: -----R Neck: -1.5 -----L Neck: -1.8 -----R Total: -0.1 -----L Total: -0.2 Bone mineral density has: Decreased -2.4% since study of: 02.16.2018 FRAX%s: THERE IS A 9.1% CHANCE FOR A MAJOR OSTEOPOROTIC FX AND A 1.6% FOR HIPS.......PROBABILITY FOR FX IN 10 YRS TIME IMPRESSION: Osteopenia (T Score between -2.5 and -1) remains present. There is slightly increased risk of fracture and the patient may be considered for treatment. Re-Screen 2-5 years. NOTE: T-SCORE=SD OF THE YOUNG ADULT MEAN.
== END | disposition home or self-care (01) ==
LOC: RADBDWWP 09:45
PROVIDERS: ATTEND Family Medicine
DX: Z78.0 Asymptomatic menopausal state (principal); M85.89 Other specified disorders of bone density and structure, multiple sites
CPT/HCPCS: 77080

== ENCOUNTER → 2022-03-04 | Outpatient (CLI) | payer MEDICARE ==
--- NOTE | 2022-03-05 08:20 | MM ---
Reason for Exam: Screening (asymptomatic). Last screening mammogram was performed 12 month(s) ago. Patient History: Menarche at age 12. First Full-Term at age 33. Late child-bearing (after 30). Postmenopausal. 03/05/2018, Benign Cyst Aspiration on the right side. Sister had ovarian cancer. Risk Values: Sayra 5 year model risk: 2.1%. NCI Lifetime model risk: 9.4%. Prior Study Comparison: 03/05/2018 Right Diagnostic Mammogram, [facility]. 09/06/2018 Right Diagnostic Mammogram, [facility]. 02/28/2021 Bilateral Screening Mammogram, [facility]. Tissue Density: The breast tissue is heterogeneously dense. This may lower the sensitivity of mammography. Findings: Analyzed By CAD. There is no suspicious group of microcalcifications or new suspicious mass in either breast. Overall Assessment: Benign, BI-RAD 2 Management: Screening Mammogram of both breasts in 1 year. A clinical breast exam by your physician is recommended on an annual basis and results should be correlated with mammographic findings. Electronically signed and approved by: Nilo Moreno M.D. Radiologis
== END | disposition home or self-care (01) ==
LOC: RADMAMWWP 12:44
PROVIDERS: ATTEND Family Medicine
DX: Z12.31 Encounter for screening mammogram for malignant neoplasm of breast (principal); Z78.0 Asymptomatic menopausal state
CPT/HCPCS: 77067

== ENCOUNTER → 2023-03-05 | Outpatient (CLI) | payer MEDICARE ==
--- NOTE | 2023-03-09 06:37 | MM ---
Reason for Exam: Screening (asymptomatic). Last screening mammogram was performed 12 month(s) ago. Patient History: Menarche at age 12. First Full-Term at age 33. Late child-bearing (after 30). Postmenopausal. 03/05/2018, Benign Cyst Aspiration on the right side. Sister had ovarian cancer. Risk Values: Sayra 5 year model risk: 2.2%. NCI Lifetime model risk: 9.1%. Prior Study Comparison: 09/06/2018 Right Diagnostic Mammogram, [facility]. 02/28/2021 Bilateral Screening Mammogram, [facility]. 03/04/2022 Bilateral MG screening mammo w CAD, [facility]. Tissue Density: There are scattered fibroglandular densities. Findings: Analyzed By CAD. Microclip right breast from prior biopsy. Small benign bilateral oil cyst calcifications redemonstrated. On the left, a typically benign low density less than 5 mm circumscribed area of nodularity centrally in the breast shows slight fluctuation. There is no suspicious group of microcalcifications or new suspicious mass in either breast. Overall Assessment: Benign, BI-RAD 2 Management: Screening Mammogram of both breasts in 1 year. . Patient should continue monthly self-breast exams. A clinical breast exam by your physician is recommended on an annual basis. This exam should not preclude additional follow-up of suspicious palpable abnormalities. Note on Sayra scores and lifetime risk: 1. A Sayra score greater than 3% is considered moderate risk. If this is the case, consider specialist referral to assess eligibility for a risk reducing agent. 2. If overall lifetime risk for the development of breast cancer is 20% or higher, the patient may qualify for future screening with alternating mammogram and breast MRI. Electronically signed and approved by: Niki Abernathy M.D. Radiologist
== END | disposition home or self-care (01) ==
LOC: RADMAMWWP 13:51
PROVIDERS: ATTEND Family Medicine
DX: Z12.31 Encounter for screening mammogram for malignant neoplasm of breast (principal); Z78.0 Asymptomatic menopausal state
CPT/HCPCS: 77063; 77067

== ENCOUNTER → 2024-03-07 | Outpatient (CLI) | payer MEDICARE ==
--- NOTE | 2024-03-13 16:27 | MM ---
Reason for Exam: Screening (asymptomatic). Last screening mammogram was performed 12 month(s) ago. Patient History: Menarche at age 12. First Full-Term at age 33. Late child-bearing (after 30). Postmenopausal. 03/05/2018, Benign Cyst Aspiration on the right side. Sister had ovarian cancer. Risk Values: Sayra 5 year model risk: 2.2%. NCI Lifetime model risk: 8.9%. Prior Study Comparison: 02/28/2021 Bilateral Screening Mammogram, [facility]. 03/04/2022 Bilateral MG screening mammo w CAD, [facility]. 03/05/2023 Bilateral MG 3D screening mammo w/cad, [facility]. Tissue Density: There are scattered areas of fibroglandular density. Findings: Analyzed By CAD. The pattern is symmetrical. Scattered benign punctate calcifications are present. No suspicious groups of microcalcifications, spiculated or lobular masses, architectural distortion or other secondary signs of malignancy are mammographically apparent. Overall Assessment: Benign, BI-RAD 2 Management: Screening Mammogram of both breasts in 1 year. A negative mammogram report should not preclude additional follow up of suspicious palpable abnormalities. Patient should continue monthly self breast exam. A clinical breast exam by your physician is recommended on an annual basis and results should be correlated with mammographic findings. Note on Sayra scores and lifetime risk: 1. A Sayra score greater than 3% is considered moderate risk. If this is the case, consider specialist referral to assess eligibility for a risk reducing agent. 2. If overall lifetime risk for the development of breast cancer is 20% or higher, the patient may qualify for future screening with alternating mammogram and breast MRI. [facility], , 03/13/2024 4:23 PM. Electronically signed and approved by: Salomón Crowley D.O. Radiologis
--- NOTE | 2024-03-13 22:54 | BD ---
EXAMINATION TYPE: Axial Bone Density DATE OF EXAM: 03/07/2024 CLINICAL HISTORY: 63 years old Female. ICD-10 CODE: Z78.0 ASYMPTOMATIC MENOPAUSAL , Additional Hist ory: Height: 63 Weight: 159.3 FRAX RISK QUESTIONS: Alcohol (3 or more units per day): no Family History (Parent hip fracture): no Glucocorticoids (More than 3mos): no (Ex: prednisone, prednisolone, methylprednisolone, dexamethasone, and hydrocortisone). History of Fracture in Adulthood: no Secondary Osteoporosis: 1. Type 1 Diabetes: no 2. Hyperthyroidism: no 3. Menopause before 45: no 4. Malnutrition: no 5. Chronic liver disease: no Rheumatoid Arthritis: no Current Tobacco Use: yes RISK FACTORS HISTORY OF: Hip Fracture (Right/Left): no Spine Fracture: no History of Wrist Fracture: no Surgery to Spine/Hip(right/left)/Wrist (right/left): no MEDICATIONS: Thyroid Medications: no Osteoporosis Medications: no EXAM MEASUREMENTS: Bone mineral densitometry was performed using the [employer] System. Bone mineral density as measured about the Lumbar spine is: ----- L1-L4(G/cm2): 1.056 T Score Values are as follows: ----- L1: -2.2 ----- L2: -2.4 ----- L3: 0.1 ----- L4: -0.1 ----- L1-L4: -1.0 Z Score Values are as follows: ----- L1: -0.9 ----- L2: -1.1 ----- L3: 1.4 ----- L4: 1.2 ----- L1-L4: 0.3 Bone mineral density has: decreased -1.6 % since study of: 04/29/2021 Bone mineral density about the R hip (g/cm2): 0.849 Bone mineral density about the L hip (g/cm2): 0.858 T Score values are as follows: -----R Neck: -1.4 -----L Neck: -1.3 -----R Total: 0.3 -----L Total: -0.2 Z Score values are as follows: -----R Neck: -0.1 -----L Neck: 0.0 -----R Total: 1.3 -----L Total: 0.7 Bone mineral density has: increased 2.5 % since study of: 04/29/2021 FRAX%s: The graph provided illustrates a 8.4 % chance for a major osteoporotic fx and a 1.3% chance f or the hips probability for fx in 10 years time. IMPRESSION: Osteopenia (T Score between -2.5 and -1). There is slightly increased risk of fracture and the patient may be considered for treatment. Re-Screen 2-5 years. NOTE: T-SCORE=SD OF THE YOUNG ADULT MEAN. [facility], , 03/13/2024 10:51 PM
== END | disposition home or self-care (01) ==
LOC: RADMAMWWP 09:46
PROVIDERS: ATTEND Family Medicine
DX: Z12.31 Encounter for screening mammogram for malignant neoplasm of breast (principal); R92.323 Mammographic fibroglandular density, bilateral breasts; M85.89 Other specified disorders of bone density and structure, multiple sites; Z78.0 Asymptomatic menopausal state; Z80.41 Family history of malignant neoplasm of ovary
CPT/HCPCS: 77063; 77067; 77080

== ENCOUNTER 2024-06-22 22:03 | Emergency (ER) | payer MEDICARE ==
[2024-06-22 22:38] VITALS: TEMP 98.4
[2024-06-22 23:20] LABS: Influenza A Not Detected (Not Detectd); Influenza B Not Detected (Not Detectd); RSV Not Detected (Not Detectd)
--- NOTE | 2024-06-23 00:23 | ED ---
Nausea/Vomiting/Diarrhea HPI - General Chief complaint: Nausea/Vomiting/Diarrhea Stated complaint: Vomiting Time Seen by Provider: 06/23/24 00:05 Source: patient Mode of arrival: ambulatory Limitations: no limitations - History of Present Illness Initial comments: 63-year-old female presenting with chief complaint of nausea vomiting and diarrhea. This has been ongoing for 3 days. Patient states that at times when she started to get nauseous she had some dull abdominal discomfort in the center of her abdomen. No blood in her stool or emesis. No urinary complaints. No fever. Some mild congestion. No cough or sore throat. No chest pain or diff iculty breathing. - Related Data Home Medications Medication Instructions Recorded Confirmed Benazepril HCl 40 mg PO DAILY 12/11/15 06/02/24 amLODIPine [Norvasc] 5 mg PO DAILY 05/14/17 06/02/24 glipiZIDE [Glucotrol] 10 mg PO BID 05/14/17 06/02/24 Acetaminophen-Codeine 300-30mg 1 tab PO BID PRN 05/26/24 06/02/24 [Tylenol w/codeine #3] Calcium Carbonate [Calcium] 600 mg PO DAILY 05/26/24 06/02/24 Multivitamins, Thera [Multivitamin 1 tab PO DAILY 05/26/24 06/02/24 (formulary)] Previous Rx's Medication Instructions Recorded Atorvastatin [Lipitor] 40 mg PO HS #30 tab 12/14/15 Clopidogrel [Plavix] 75 mg PO DAILY #30 tablet 12/14/15 Ondansetron Odt [Zofran Odt] 4 mg PO Q8HR PRN #20 tab 06/23/24 Allergies Allergy/AdvReac Type Severity Reaction Status Date / Time prochlorperazine Allergy Severe Anaphylaxis Verified 06/22/24 22:38 [From Compazine] prochlorperazine edisylate Allergy Severe Anaphylaxis Verified 06/22/24 22:38 [From Compazine] prochlorperazine maleate Allergy Severe Anaphylaxis Verified 06/22/24 22:38 [From Compazine] adhesive tape Allergy Rash/Hives Verified 06/22/24 22:38 aspirin AdvReac bruising Verified 06/22/24 22:38 empagliflozin AdvReac yeast Verified 06/22/24 22:38 [From Jardiance] infection Review of Systems ROS Statement: Those systems with pertinent positive or pertinent negative responses have been documented in the HPI. ROS Other: All systems not noted in ROS Statement are negative. Past Medical History Past Medical History: CVA/TIA, Diabetes Mellitus, GERD/Reflux, Hyperlipidemia, Hypertension Additional Past Medical History / Comment(s): TIA 2009, pain rt neck, shoulder and arm with weakness and limited movement of rt arm. History of Any Multi-Drug Resistant Organisms: None Reported Past Surgical History: Orthopedic Surgery Additional Past Surgical History / Comment(s): left knee and ankle, RIGHT SHOULDER SURGERY, cold knife colonization of the cervix in 2008. Colonoscopy 14 01. Past Anesthesia/Blood Transfusion Reactions: No Reported Reaction Additional Past Anesthesia/Blood Transfusion Reaction / Comment(s): "COULD FEEL EVERYTHING THEY WERE DOING ON MY BACK THE LAST PAIN PROCEDURE" Past Psychological History: No Psychological Hx Reported Smoking Status: Current every day smoker Past Alcohol Use History: None Reported Past Drug Use History: None Reported - Past Family History Mother Family Medical History: Diabetes Mellitus Father Family Medical History: Myocardial Infarction ([place]) Sister(s) Family Medical History: Cancer Additional Family Medical History / Comment(s): uterine cancer Brother(s) Additional Family Medical History / Comment(s): patient states her 2 brothers of AIDS General Exam Limitations: no limitations General appearance: alert, in no apparent distress Head exam: Present: atraumatic, normocephalic, normal inspection Eye exam: Present: normal appearance, EOMI Neck exam: Present: normal inspection. Absent: meningismus Respiratory exam: Present: normal lung sounds bilaterally. Absent: respiratory distress, wheezes, rales, rhonchi, stridor Cardiovascular Exam: Present: regular rate, normal rhythm, normal heart sounds. Absent: systolic murmur, diastolic murmur, rubs, gallop, clicks GI/Abdominal exam: Present: soft. Absent: distended, tenderness, guarding, rebound, rigid Neurological exam: Present: alert, oriented X3 Psychiatric exam: Present: normal affect, normal mood Skin exam: Present: warm, dry, normal color Course Vital Signs 06/22/24 06/23/24 22:35 02:11 Temperature 98.4 F Pulse Rate 94 90 Respiratory 18 20 Rate Blood Pressure 127/75 134/76 O2 Sat by Pulse 95 97 Oximetry Medical Decision Making - Medical Decision Making Was pt. sent in by a medical professional or institution ([facility] Add[facility], [employer]ER READER, urgent care, hospital, or fpc...) When possible be specific @ -No Did you speak to anyone other than the patient for history (EMS, parent, family, police, friend...)? What history was obtained from this source @ -No Did you review nursing and triage notes (agree or disagree)? Why? @ -I reviewed and agree with nursing and triage notes Were old charts reviewed (outside hosp., previous admission, EMS record, old EKG, old radiological studies, urgent care reports/EKG's, fpc records)? Report findings @ -No old charts were reviewed Differential Diagnosis (chest pain, altered mental status, abdominal pain women, abdominal pain men, vaginal bleeding, weakness, fever, dyspnea, syncope, headache, dizziness, GI bleed, back pain, seizure, CVA, palpatations, mental h ealth, musculoskeletal)? @ -Differential includes gastroenteritis, bowel obstruction, UTI, cholecy stitis, appendicitis, colitis, diverticulitis, not an all-inclusive list EKG interpreted by me (3pts min.). @ -As above X-rays interpreted by me (1pt min.). @ -None done CT interpreted by me (1pt min.). @ -None done U/S interpreted by me (1pt. min.). @ -None done What testing was considered but not performed or refused? (CT, X-rays, U/S, labs)? Why? @ -None What meds were considered but not given or refused? Why? @ -None Did you discuss the management of the patient with other professionals (professionals i.e. J[facility] Addison, METER READER, lab, RT, psych nurse, foster care social worker, developmental electronics assembler, teacher, aircraft electronics technical officer, oil field caser)? Give summary @ -No Was smoking cessation discussed for >3mins.? @ -No Was critical care preformed (if so, how long)? @ -No Were there social determinants of health that impacted care today? How? (Homelessness, low income, unemployed, alcoholism, drug addiction, transportation, low edu. Level, literacy, decrease access to med. care, fdc, rehab)? @ -No Was there de-escalation of care discussed even if they declined (Discuss DNR or withdrawal of care, Hospice)? DNR status @ -No What co-morbidities impacted this encounter? (DM, HTN, Smoking, COPD, CAD, Cancer, CVA, ARF, Chemo, Hep., AIDS, mental health diagnosis, sleep apnea, morbid obesity)? @ -None Was patient admitted / discharged? Hospital course, mention meds given and route, prescriptions, significant lab abnormalities, going to OR and other pertinent info. @ -63-year-old female presenting with chief complaint of nausea vomiting and diarrhea. History and physical examination are conducted. She is having no abdominal pain. White count 16.8. Urine shows no convincing evidence for infection. +1 ketones likely due to dehydration. Anion gap is normal at 10. She is negative for influenza, RSV, COVID. On reassessment after IV fluids and antiemetics patient is feeling much better and is eager to go home. She is educated on today's findings and management plan. Follow-up with PCP. Report back to ER with any new or worsening symptoms. Discussed return parameters and answered all questions. Patient conveyed verbal understanding and agreed to the plan. I discussed this case in detail with my attending Dr. Ibrahim Undiagnosed new problem with uncertain prognosis? @ -No Drug Therapy requiring intensive monitoring for toxicity (Heparin, Nitro, Insulin, Cardizem)? @ -No Were any procedures done? @ -No Diagnosis/symptom? @ -Gastroenteritis Acute, or Chronic, or Acute on Chronic? @ -Acute Uncomplicated (without systemic symptoms) or Complicated (systemic symptoms)? @ -Uncomplicated Side effects of treatment? @ -No Exacerbation, Progression, or Severe Exacerbation? @ -No Poses a threat to life or bodily function? How? (Chest pain, [place], [place], pneumonia, PE, COPD, DKA, ARF, appy, cholecystitis, CVA, Diverticulitis, Homicidal, Suicidal, threat to staff... and all critical care pts) @ -Low likelihood - Lab Data Result diagrams: 06/23/24 00:11 06/23/24 00:11 Lab Results 06/22/24 06/23/24 06/23/24 Range/Units 22:40 00:11 00:11 WBC 16.8 H (3.8-10.6) k/uL RBC 5.07 (3.80-5.40) m/uL Hgb 14.9 (11.4-16.0) gm/dL Hct 44.6 (34.0-46.0) % MCV 88.0 (80.0-100.0) fL MCH 29.3 (25.0-35.0) pg MCHC 33.3 (31.0-37.0) g/dL RDW 13.4 (11.5-15.5) % Plt Count 451 H (150-450) k/uL MPV 7.9 Neutrophils % 75 % Lymphocytes % 18 % Monocytes % 4 % Eosinophils % 1 % Basophils % 1 % Neutrophils # 12.7 H (1.3-7.7) k/uL Lymphocytes # 3.0 (1.0-4.8) k/uL Monocytes # 0.7 (0-1.0) k/uL Eosinophils # 0.2 (0-0.7) k/uL Basophils # 0.1 (0-0.2) k/uL Sodium 136 L (137-145) mmol/L Potassium 3.9 (3.5-5.1) mmol/L Chloride 98 (98-107) mmol/L Carbon Dioxide 28 (22-30) mmol/L Anion Gap 10 mmol/L BUN 14 (7-17) mg/dL Creatinine 0.74 (0.52-1.04) mg/dL Est GFR (CKD-EPI)AfAm >90 (>60 ml/min/1.73 sqM) Est GFR (CKD-EPI)NonAf 87 (>60 ml/min/1.73 sqM) Glucose 211 H (74-99) mg/dL Plasma Lactic Acid David (0.7-2.0) mmol/L Calcium 10.2 (8.4-10.2) mg/dL Total Bilirubin 0.8 (0.2-1.3) mg/dL AST 25 (14-36) U/L ALT 24 (4-34) U/L Alkaline Phosphatase 101 (38-126) U/L Total Protein 7.5 (6.3-8.2) g/dL Albumin 4.6 (3.5-5.0) g/dL Amylase 43 (30-110) U/L Lipase 147 (23-300) U/L Urine Color Urine Appearance (Clear) Urine pH (5.0-8.0) Ur Specific [place] (1.001-1.035) Urine Protein (Negative) Urine Glucose (UA) (Negative) Urine Ketones (Negative) Urine Blood (Negative) Urine Nitrite (Negative) Urine Bilirubin (Negative) Urine Urobilinogen (<2.0) mg/dL Ur Leukocyte Esterase (Negative) Urine RBC (0-5) /hpf Urine WBC (0-5) /hpf Urine Mucus (None) /hpf Influenza Type A (PCR) Not Detected (Not Detectd) Influenza Type B (PCR) Not Detected (Not Detectd) RSV (PCR) Not Detected (Not Detectd) SARS-CoV-2 (PCR) Not Detected (Not Detectd) 06/23/24 06/23/24 Range/Units 00:11 00:50 WBC (3.8-10.6) k/uL RBC (3.80-5.40) m/uL Hgb (11.4-16.0) gm/dL Hct (34.0-46.0) % MCV (80.0-100.0) fL MCH (25.0-35.0) pg MCHC (31.0-37.0) g/dL RDW (11.5-15.5) % Plt Count (150-450) k/uL MPV Neutrophils % % Lymphocytes % % Monocytes % % Eosinophils % % Basophils % % Neutrophils # (1.3-7.7) k/uL Lymphocytes # (1.0-4.8) k/uL Monocytes # (0-1.0) k/uL Eosinophils # (0-0.7) k/uL Basophils # (0-0.2) k/uL Sodium (137-145) mmol/L Potassium (3.5-5.1) mmol/L Chloride (98-107) mmol/L Carbon Dioxide (22-30) mmol/L Anion Gap mmol/L BUN (7-17) mg/dL Creatinine (0.52-1.04) mg/dL Est GFR (CKD-EPI)AfAm (>60 ml/min/1.73 sqM) Est GFR (CKD-EPI)NonAf (>60 ml/min/1.73 sqM) Glucose (74-99) mg/dL Plasma Lactic Acid David 1.4 (0.7-2.0) mmol/L Calcium (8.4-10.2) mg/dL Total Bilirubin (0.2-1.3) mg/dL AST (14-36) U/L ALT (4-34) U/L Alkaline Phosphatase (38-126) U/L Total Protein (6.3-8.2) g/dL Albumin (3.5-5.0) g/dL Amylase (30-110) U/L Lipase (23-300) U/L Urine Color Dark Yellow Urine Appearance Cloudy H (Clear) Urine pH 6.5 (5.0-8.0) Ur Specific [place] 1.031 (1.001-1.035) Urine Protein 2+ H (Negative) Urine Glucose (UA) Trace H (Negative) Urine Ketones 1+ H (Negative) Urine Blood Negative (Negative) Urine Nitrite Negative (Negative) Urine Bilirubin 1+ H (Negative) Urine Urobilinogen 6.0 (<2.0) mg/dL Ur Leukocyte Esterase Small H (Negative) Urine RBC 1 (0-5) /hpf Urine WBC 15 H (0-5) /hpf Urine Mucus Many H (None) /hpf Influenza Type A (PCR) (Not Detectd) Influenza Type B (PCR) (Not Detectd) RSV (PCR) (Not Detectd) SARS-CoV-2 (PCR) (Not Detectd) Disposition Clinical Impression: Gastroenteritis Disposition: HOME SELF-CARE Condition: Good Instructions (If sedation given, give patient instructions): Acute Nausea and Vomiting (ED), Acute Diarrhea (ED) Additional Instructions: Follow-up with PCP. Report back to ER with any new or worsening symptoms. Prescriptions: Ondansetron Odt [Zofran Odt] 4 mg PO Q8HR PRN #20 tab PRN Reason: Nausea Is patient prescribed a controlled substance at d/c from ED?: No Referrals: Arsh Shukla MD [Primary Care Provider] - 1-2 days Time of Disposition: 01:44
[2024-06-23 00:24] LABS: Basophils # (A) 0.1 k/uL (0-0.2); Basophils % (A) 1 %; Eosinophils # (A) 0.2 k/uL (0-0.7); Eosinophils % (A) 1 %; HCT 44.6 % (34.0-46.0); HGB 14.9 gm/dL (11.4-16.0); Lymphocytes % (A) 18 %; MCH 29.3 pg (25.0-35.0); MCHC 33.3 g/dL (31.0-37.0); Mean Platelet Volume 7.9; Monocytes # (A) 0.7 k/uL (0-1.0); Monocytes % (A) 4 %; Neutrophils # (A) 12.7 k/uL (1.3-7.7); Neutrophils % (A) 75 %; Platelet Count 451 k/uL (150-450); RBC 5.07 m/uL (3.80-5.40); RDW 13.4 % (11.5-15.5); WBC 16.8 k/uL (3.8-10.6)
[2024-06-23] MEDS: SODIUM CHLORIDE 0.9% 1,000 ML IV ONE (00:28)
[2024-06-23] MEDS: ONDANSETRON 4 MG/2 ML VIAL IVP STA (00:29)
[2024-06-23 00:36] LABS: ALT 24 U/L (4-34); AST 25 U/L (14-36); African American GFR (CKD) >90 (>60 ml/min/1.73 sqM); Albumin 4.6 g/dL (3.5-5.0); Alkaline Phosphatase 101 U/L (38-126); Amylase 43 U/L (30-110); Anion Gap 10 mmol/L; Blood Urea Nitrogen 14 mg/dL (7-17); Calcium 10.2 mg/dL (8.4-10.2); Carbon Dioxide 28 mmol/L (22-30); Chloride 98 mmol/L (98-107); Glucose 211 mg/dL (74-99); Lipase 147 U/L (23-300); Non-African American GFR(CKD) 87 (>60 ml/min/1.73 sqM); Potassium 3.9 mmol/L (3.5-5.1); Sodium 136 mmol/L (137-145); Total Bilirubin 0.8 mg/dL (0.2-1.3); Total Protein 7.5 g/dL (6.3-8.2)
[2024-06-23 01:25] LABS: Appearance,Urine Cloudy (Clear); Bilirubin,Urine 1+ (Negative); Blood,Urine Negative (Negative); Color,Urine Dark Yellow; Glucose,Urine (UA) Trace (Negative); Ketones,Urine 1+ (Negative); Leukocyte Esterase,Urine Small (Negative); Mucus,Urine Many /hpf; Nitrite,Urine Negative (Negative); PH, Urine 6.5 (5.0-8.0); Protein,Urine 2+ (Negative); RBC,Urine 1 /hpf (0-5); Specific Gravity,Urine 1.031 (1.001-1.035); WBC,Urine 15 /hpf (0-5)
[2024-06-23 02:12] VITALS: BP 134/76; PULSE 90; RESP 20
== END 2024-06-23 02:12 | disposition home or self-care (01) ==
LOC: EC 22:03
DX: K52.9 Noninfective gastroenteritis and colitis, unspecified (principal); F17.200 Nicotine dependence, unspecified, uncomplicated
CPT/HCPCS: 36415; 80053; 82150; 83605; 83690; 85025; 81001; 87636; 99283; 96374; 96361; J2405

== ENCOUNTER 2024-08-31 17:30 | Emergency (ER) | payer MEDICARE ==
--- NOTE | 2024-08-31 17:56 | ED ---
Nausea/Vomiting/Diarrhea HPI - General Chief complaint: Nausea/Vomiting/Diarrhea Stated complaint: NVD Time Seen by Provider: 08/31/24 17:47 Source: patient Mode of arrival: ambulatory Limitations: no limitations - History of Present Illness Initial comments: This is a 63-year-old female with history including DM, hypertension, hyperlipidemia and CVA (2016 affecting right arm) presenting for N/V/D x 2 days. Patient states she has an appetite but is unable to hold down food or water despite use of sublingual Zofran. Patient states she had similar symptoms last month prior to receiving Zofran which has helped until now. Patient also mentions upper/mid abdominal pain that is intermittent, described as squeezing. Patient also mentions voice loss and nasal congestion for the past 2 weeks. Denies fever, chills, chest pain, dyspnea, dizziness, hematemesis, hematochezia, melena. Denies unilateral hemiplegia, paresthesia, vision changes. MD complaint: nausea, vomiting, diarrhea, abdominal pain Onset/Timin -: days(s) Associated Abdominal Pain: Yes Location: periumbilical Quality: cramping Consistency: intermittent Worsens with: eating Associated Symptoms: nausea/vomiting - Related Data Home Medications Medication Instructions Recorded Confirmed Benazepril HCl 40 mg PO DAILY 12/11/15 06/02/24 amLODIPine [Norvasc] 5 mg PO DAILY 05/14/17 06/02/24 glipiZIDE [Glucotrol] 10 mg PO BID 05/14/17 06/02/24 Acetaminophen-Codeine 300-30mg 1 tab PO BID PRN 05/26/24 06/02/24 [Tylenol w/codeine #3] Calcium Carbonate [Calcium] 600 mg PO DAILY 05/26/24 06/02/24 Multivitamins, Thera [Multivitamin 1 tab PO DAILY 05/26/24 06/02/24 (formulary)] Previous Rx's Medication Instructions Recorded Atorvastatin [Lipitor] 40 mg PO HS #30 tab 12/14/15 Clopidogrel [Plavix] 75 mg PO DAILY #30 tablet 12/14/15 Ondansetron Odt [Zofran Odt] 4 mg PO Q8HR PRN #20 tab 06/23/24 Famotidine [Pepcid] 20 mg PO BID #28 tablet 08/31/24 Metoclopramide [Reglan] 10 mg PO TID PRN #15 tab 08/31/24 Allergies Allergy/AdvReac Type Severity Reaction Status Date / Time prochlorperazine Allergy Severe Anaphylaxis Verified 08/31/24 17:34 [From Compazine] prochlorperazine edisylate Allergy Severe Anaphylaxis Verified 08/31/24 17:34 [From Compazine] prochlorperazine maleate Allergy Severe Anaphylaxis Verified 08/31/24 17:34 [From Compazine] adhesive tape Allergy Rash/Hives Verified 08/31/24 17:34 aspirin AdvReac bruising Verified 08/31/24 17:34 empagliflozin AdvReac yeast Verified 08/31/24 17:34 [From Jardiance] infection Review of Systems ROS Statement: Those systems with pertinent positive or pertinent negative responses have been documented in the HPI. ROS Other: All systems not noted in ROS Statement are negative. Past Medical History Past Medical History: CVA/TIA, Diabetes Mellitus, GERD/Reflux, Hyperlipidemia, Hypertension Additional Past Medical History / Comment(s): TIA 2009, pain rt neck, shoulder and arm with weakness and limited movement of rt arm. History of Any Multi-Drug Resistant Organisms: None Reported Past Surgical History: Orthopedic Surgery Additional Past Surgical History / Comment(s): left knee and ankle, RIGHT SHOULDER SURGERY, cold knife colonization of the cervix in 2008. Colonoscopy 2008. Past Anesthesia/Blood Transfusion Reactions: No Reported Reaction Additional Past Anesthesia/Blood Transfusion Reaction / Comment(s): "COULD FEEL EVERYTHING THEY WERE DOING ON MY BACK THE LAST PAIN PROCEDURE" Past Psychological History: No Psychological Hx Reported Smoking Status: Current every day smoker Past Alcohol Use History: None Reported Past Drug Use History: None Reported - Past Family History Mother Family Medical History: Diabetes Mellitus Father Family Medical History: Myocardial Infarction ([place]) Sister(s) Family Medical History: Cancer Additional Family Medical History / Comment(s): uterine cancer Brother(s) Additional Family Medical History / Comment(s): patient states her 2 brothers of AIDS General Exam Limitations: no limitations General appearance: alert, in no apparent distress Head exam: Present: atraumatic, normocephalic, normal inspection Eye exam: Present: normal appearance, PERRL, EOMI. Absent: scleral icterus, conjunctival injection, periorbital swelling ENT exam: Present: normal exam, mucous membranes moist Neck exam: Present: normal inspection. Absent: tenderness, meningismus, lymphadenopathy Respiratory exam: Present: decreased breath sounds. Absent: respiratory distress, wheezes, rales, rhonchi, stridor, accessory muscle use, prolonged expiratory Cardiovascular Exam: Present: regular rate, normal rhythm, normal heart sounds. Absent: systolic murmur, diastolic murmur, rubs, gallop, clicks GI/Abdominal exam: Present: soft, tenderness (Positive LLQ TTP without guarding), normal bowel sounds. Absent: distended, guarding, rebound, rigid Extremities exam: Present: normal inspection, full ROM, normal capillary refill. Absent: tenderness, pedal edema, joint swelling, calf tenderness Back exam: Present: normal inspection. Absent: CVA tenderness (R), CVA tenderness (L) Neurological exam: Present: alert, oriented X3, CN II-XII intact Psychiatric exam: Present: normal affect, normal mood Skin exam: Present: warm, dry, intact, normal color. Absent: rash Course Vital Signs 08/31/24 08/31/24 17:31 20:14 Temperature 97.8 F 98.3 F Pulse Rate 130 H 76 Respiratory 18 16 Rate Blood Pressure 171/90 137/63 O2 Sat by Pulse 94 L Oximetry Medical Decision Making - Medical Decision Making Was pt. sent in by a medical professional or institution (, [facility]ADE, [employer]ICIAN, urgent care, hospital, or fpc...) When possible be specific @ -[No] Did you speak to anyone other than the patient for history (EMS, parent, family, police, friend...)? What history was obtained from this source @ -[No] Did you review nursing and triage notes (agree or disagree)? Why? @ -[I reviewed and agree with nursing and triage notes] Were old charts reviewed (outside hosp., previous admission, EMS record, old EKG, old radiological studies, urgent care reports/EKG's, fpc records)? Report findings @ -[No old charts were reviewed] Differential Diagnosis (chest pain, altered mental status, abdominal pain women, abdominal pain men, vaginal bleeding, weakness, fever, dyspnea, syncope, headache, dizziness, GI bleed, back pain, seizure, CVA, palpatations, mental health, musculoskeletal)? @ -Differential Abdominal Pain Women: Appendicitis, Cholecystitis, diverticulosis, ischemic bowel, pancreatitis, hepatitis, UTI, gastroenteritis, AAA, incarcerated hernia, bowel obstruction, constipation, inflammatory bowel, hepatitis, peptic ulcer disease, splenic infarction, perforated viscus, vulvitis, ovarian torsion, PID, kidney stone, placenta abruption, this is not meant to be an all-inclusive list EKG interpreted by me (3pts min.). @ -Sinus tachycardia without ST deviation or T wave inversion. Ventricular rate 100 bpm, TAMMY 120 ms, QRS 99 ms, QTc 409 ms. X-rays interpreted by me (1pt min.). @ -[None done] CT interpreted by me (1pt min.). @ -[None done] U/S interpreted by me (1pt. min.). @ -[None done] What testing was considered but not performed or refused? (CT, X-rays, U/S, labs)? Why? @ -[None] What meds were considered but not given or refused? Why? @ -[None] Did you discuss the management of the patient with other professionals (professionals i.e. , PA, [employer]CHNICIAN, lab, RT, psych nurse, social media community manager, metal worker, teacher, animal control officer, mental health case manager)? Give summary @ -[No] Was smoking cessation discussed for >3mins.? @ -[No] Was critical care preformed (if so, how long)? @ -[No] Were there social determinants of health that impacted care today? How? (Homelessness, low income, unemployed, alcoholism, drug addiction, transportation, low edu. Level, literacy, decrease access to med. care, skilled nursing, rehab)? @ -[No] Was there de-escalation of care discussed even if they declined (Discuss DNR or withdrawal of care, Hospice)? DNR status @ -[No] What co-morbidities impacted this encounter? (DM, HTN, Smoking, COPD, CAD, Cancer, CVA, ARF, Chemo, Hep., AIDS, mental health diagnosis, sleep apnea, morbid obesity)? @ -[None] Was patient admitted / discharged? Hospital course, mention meds given and route, prescriptions, significant lab abnormalities, going to OR and other pert inent info. @ -[hospital course] Undiagnosed new problem with uncertain prognosis? @ -[No] Drug Therapy requiring intensive monitoring for toxicity (Heparin, Nitro, Insulin, Cardizem)? @ -[No] Were any procedures done? @ -[No] Diagnosis/symptom? @ -[default] Acute, or Chronic, or Acute on Chronic? @ -[default] Uncomplicated (without systemic symptoms) or Complicated (systemic symptoms)? @ -[default] Side effects of treatment? @ -[No] Exacerbation, Progression, or Severe Exacerbation? @ -[No] Poses a threat to life or bodily function? How? (Chest pain, [place], [place], pneumonia, PE, COPD, DKA, ARF, appy, cholecystitis, CVA, Diverticulitis, Homicidal, Suicidal, threat to staff... and all critical care pts) @ -[No] - Lab Data Result diagrams: 08/31/24 18:06 08/31/24 18:09 Lab Results 08/31/24 08/31/24 08/31/24 Range/Units 18:06 18:09 18:09 WBC 13.80 H (4.50-10.00) 10*3/uL RBC 4.96 (4.10-5.20) 10*6/uL Hgb 15.3 H (12.0-15.0) g/dL Hct 42.8 (37.2-46.3) % MCV 86.3 (80.0-97.0) fL MCH 30.8 (27.0-32.0) pg MCHC 35.7 (32.0-37.0) g/dL Plt Count 405 (140-440) 10*3/uL MPV 9.9 (9.5-12.2) fL Immature Gran % (Auto) 0.4 % Neutrophils % 69.3 % Lymphocytes % 22.8 % Monocytes % 6.6 % Eosinophils % 0.3 % Basophils % 0.6 % Immature Gran # 0.05 H (0.00-0.04) 10*3/uL Neutrophils # 9.58 H (1.80-7.70) 10*3/uL Lymphocytes # 3.14 (0.90-5.00) 10*3/uL Monocytes # 0.91 (0.20-1.00) 10*3/uL Eosinophils # 0.04 (0.04-0.35) 10*3/uL Basophils # 0.08 (0.00-0.10) 10*3/uL PT (10.0-12.5) sec INR (<1.2) APTT (22.0-30.0) sec Sodium 137 (137-145) mmol/L Potassium 3.6 (3.5-5.1) mmol/L Chloride 99 (98-107) mmol/L Carbon Dioxide 26 (22-30) mmol/L Anion Gap 12 mmol/L BUN 15 (7-17) mg/dL Creatinine 0.69 (0.52-1.04) mg/dL Est GFR (CKD-EPI)AfAm >90 (>60 ml/min/1.73 sqM) Est GFR (CKD-EPI)NonAf >90 (>60 ml/min/1.73 sqM) Glucose 205 H (74-99) mg/dL Plasma Lactic Acid David 1.3 (0.7-2.0) mmol/L Calcium 9.9 (8.4-10.2) mg/dL Total Bilirubin 1.0 (0.2-1.3) mg/dL AST 23 (14-36) U/L ALT 23 (4-34) U/L Alkaline Phosphatase 111 (38-126) U/L Troponin I (0.000-0.034) ng/mL Total Protein 7.3 (6.3-8.2) g/dL Albumin 4.4 (3.5-5.0) g/dL Lipase 254 (23-300) U/L Urine Color Urine Appearance (Clear) Urine pH (5.0-8.0) Ur Specific [place] (1.001-1.035) Urine Protein (Negative) Urine Glucose (UA) (Negative) Urine Ketones (Negative) Urine Blood (Negative) Urine Nitrite (Negative) Urine Bilirubin (Negative) Urine Urobilinogen (<2.0) mg/dL Ur Leukocyte Esterase (Negative) Influenza Type A (PCR) (Not Detectd) Influenza Type B (PCR) (Not Detectd) RSV (PCR) (Not Detectd) SARS-CoV-2 (PCR) (Not Detectd) Group A Strep (PCR) (Not Detectd) 08/31/24 08/31/24 08/31/24 Range/Units 18:09 18:09 18:09 WBC (4.50-10.00) 10*3/uL RBC (4.10-5.20) 10*6/uL Hgb (12.0-15.0) g/dL Hct (37.2-46.3) % MCV (80.0-97.0) fL MCH (27.0-32.0) pg MCHC (32.0-37.0) g/dL Plt Count (140-440) 10*3/uL MPV (9.5-12.2) fL Immature Gran % (Auto) % Neutrophils % % Lymphocytes % % Monocytes % % Eosinophils % % Basophils % % Immature Gran # (0.00-0.04) 10*3/uL Neutrophils # (1.80-7.70) 10*3/uL Lymphocytes # (0.90-5.00) 10*3/uL Monocytes # (0.20-1.00) 10*3/uL Eosinophils # (0.04-0.35) 10*3/uL Basophils # (0.00-0.10) 10*3/uL PT 10.8 (10.0-12.5) sec INR 1.0 (<1.2) APTT 22.2 (22.0-30.0) sec Sodium (137-145) mmol/L Potassium (3.5-5.1) mmol/L Chloride (98-107) mmol/L Carbon Dioxide (22-30) mmol/L Anion Gap mmol/L BUN (7-17) mg/dL Creatinine (0.52-1.04) mg/dL Est GFR (CKD-EPI)AfAm (>60 ml/min/1.73 sqM) Est GFR (CKD-EPI)NonAf (>60 ml/min/1.73 sqM) Glucose (74-99) mg/dL Plasma Lactic Acid David (0.7-2.0) mmol/L Calcium (8.4-10.2) mg/dL Total Bilirubin (0.2-1.3) mg/dL AST (14-36) U/L ALT (4-34) U/L Alkaline Phosphatase (38-126) U/L Troponin I (0.000-0.034) ng/mL Total Protein (6.3-8.2) g/dL Albumin (3.5-5.0) g/dL Lipase (23-300) U/L Urine Color Urine Appearance (Clear) Urine pH (5.0-8.0) Ur Specific [place] (1.001-1.035) Urine Protein (Negative) Urine Glucose (UA) (Negative) Urine Ketones (Negative) Urine Blood (Negative) Urine Nitrite (Negative) Urine Bilirubin (Negative) Urine Urobilinogen (<2.0) mg/dL Ur Leukocyte Esterase (Negative) Influenza Type A (PCR) Not Detected (Not Detectd) Influenza Type B (PCR) Not Detected (Not Detectd) RSV (PCR) Not Detected (Not Detectd) SARS-CoV-2 (PCR) Not Detected (Not Detectd) Group A Strep (PCR) NOT DETECTED (Not Detectd) 08/31/24 08/31/24 Range/Units 18:09 21:30 WBC (4.50-10.00) 10*3/uL RBC (4.10-5.20) 10*6/uL Hgb (12.0-15.0) g/dL Hct (37.2-46.3) % MCV (80.0-97.0) fL MCH (27.0-32.0) pg MCHC (32.0-37.0) g/dL Plt Count (140-440) 10*3/uL MPV (9.5-12.2) fL Immature Gran % (Auto) % Neutrophils % % Lymphocytes % % Monocytes % % Eosinophils % % Basophils % % Immature Gran # (0.00-0.04) 10*3/uL Neutrophils # (1.80-7.70) 10*3/uL Lymphocytes # (0.90-5.00) 10*3/uL Monocytes # (0.20-1.00) 10*3/uL Eosinophils # (0.04-0.35) 10*3/uL Basophils # (0.00-0.10) 10*3/uL PT (10.0-12.5) sec INR (<1.2) APTT (22.0-30.0) sec Sodium (137-145) mmol/L Potassium (3.5-5.1) mmol/L Chloride (98-107) mmol/L Carbon Dioxide (22-30) mmol/L Anion Gap mmol/L BUN (7-17) mg/dL Creatinine (0.52-1.04) mg/dL Est GFR (CKD-EPI)AfAm (>60 ml/min/1.73 sqM) Est GFR (CKD-EPI)NonAf (>60 ml/min/1.73 sqM) Glucose (74-99) mg/dL Plasma Lactic Acid David (0.7-2.0) mmol/L Calcium (8.4-10.2) mg/dL Total Bilirubin (0.2-1.3) mg/dL AST (14-36) U/L ALT (4-34) U/L Alkaline Phosphatase (38-126) U/L Troponin I <0.012 (0.000-0.034) ng/mL Total Protein (6.3-8.2) g/dL Albumin (3.5-5.0) g/dL Lipase (23-300) U/L Urine Color Light Yellow Urine Appearance Clear (Clear) Urine pH 7.5 (5.0-8.0) Ur Specific [place] >1.050 H (1.001-1.035) Urine Protein Trace H (Negative) Urine Glucose (UA) Negative (Negative) Urine Ketones 2+ H (Negative) Urine Blood Negative (Negative) Urine Nitrite Negative (Negative) Urine Bilirubin Negative (Negative) Urine Urobilinogen 3.0 (<2.0) mg/dL Ur Leukocyte Esterase Negative (Negative) Influenza Type A (PCR) (Not Detectd) Influenza Type B (PCR) (Not Detectd) RSV (PCR) (Not Detectd) SARS-CoV-2 (PCR) (Not Detectd) Group A Strep (PCR) (Not Detectd) Disposition Clinical Impression: Gastritis, Gastroenteritis Disposition: HOME SELF-CARE Condition: Good Instructions (If sedation given, give patient instructions): Acute Nausea and Vomiting (ED), GERD (Gastroesophageal Reflux Disease) (ED) Additional Instructions: Increase intake of bananas, rice, applesauce, tea, toast. Magdalena tea/roman for nausea. Follow-up with primary care/gastroenterology for any ongoing worsening symptoms. Prescriptions: Famotidine [Pepcid] 20 mg PO BID #28 tablet Metoclopramide [Reglan] 10 mg PO TID PRN #15 tab PRN Reason: Nausea Is patient prescribed a controlled substance at d/c from ED?: No Referrals: Arsh Shukla MD [Primary Care Provider] - 1-2 days Kary Pearce MD [STAFF PHYSICIAN] - 1-2 days Time of Disposition: 22:29
[2024-08-31] MEDS: SODIUM CHLORIDE 0.9% 1,000 ML IV STA (18:07)
[2024-08-31 18:16] LABS: Basophils # (A) 0.08 10*3/uL (0.00-0.10); Basophils % (A) 0.6 %; Eosinophils # (A) 0.04 10*3/uL (0.04-0.35); Eosinophils % (A) 0.3 %; HCT 42.8 % (37.2-46.3); HGB 15.3 g/dL (12.0-15.0); Lymphocytes # (A) 3.14 10*3/uL (0.90-5.00); Lymphocytes % (A) 22.8 %; MCH 30.8 pg (27.0-32.0); MCHC 35.7 g/dL (32.0-37.0); MCV 86.3 fL (80.0-97.0); Mean Platelet Volume 9.9 fL (9.5-12.2); Monocytes # (A) 0.91 10*3/uL (0.20-1.00); Monocytes % (A) 6.6 %; Neutrophils # (A) 9.58 10*3/uL (1.80-7.70); Neutrophils % (A) 69.3 %; Platelet Count 405 10*3/uL (140-440); RBC 4.96 10*6/uL (4.10-5.20)
[2024-08-31 18:30] LABS: ALT 23 U/L (4-34); AST 23 U/L (14-36); African American GFR (CKD) >90 (>60 ml/min/1.73 sqM); Albumin 4.4 g/dL (3.5-5.0); Alkaline Phosphatase 111 U/L (38-126); Anion Gap 12 mmol/L; Blood Urea Nitrogen 15 mg/dL (7-17); Calcium 9.9 mg/dL (8.4-10.2); Carbon Dioxide 26 mmol/L (22-30); Chloride 99 mmol/L (98-107); Glucose 205 mg/dL (74-99); Lipase 254 U/L (23-300); Non-African American GFR(CKD) >90 (>60 ml/min/1.73 sqM); Potassium 3.6 mmol/L (3.5-5.1); Sodium 137 mmol/L (137-145); Total Protein 7.3 g/dL (6.3-8.2)
--- NOTE | 2024-08-31 18:38 | XR ---
EXAMINATION TYPE: XR chest 2V DATE OF EXAM: 08/31/2024 6:16 PM COMPARISON: None CLINICAL INDICATION: Female, 63 years old with history of Upper abdominal pain; TECHNIQUE: XR chest 2V Frontal and lateral views of the chest. FINDINGS: Lungs/Pleura: There is no evidence of pleural effusion, focal consolidation, or pneumothorax. Pulmonary vascularity: Unremarkable. Heart/mediastinum: Cardiomediastinal silhouette is unremarkable. Atherosclerotic calcifications are seen in the aorta. Musculoskeletal: No acute osseous pathology. IMPRESSION: 1. No acute cardiopulmonary disease process. 2. COPD changes. [facility], , 08/31/2024 6:35 PM
[2024-08-31 18:47] LABS: Partial Thromboplastin Time 22.2 sec (22.0-30.0); Prothrombin Time 10.8 sec (10.0-12.5)
[2024-08-31 18:55] LABS: Influenza A Not Detected (Not Detectd); Influenza B Not Detected (Not Detectd); RSV Not Detected (Not Detectd)
--- NOTE | 2024-08-31 19:28 | CT ---
EXAMINATION TYPE: CT abdomen pelvis w con DATE OF EXAM: 08/31/2024 7:08 PM COMPARISON: None. CLINICAL INDICATION: Female, 63 years old with history of LLQ TTP, history of diverticulitis; Pt arri ves with c/o n/v headache. TECHNIQUE: Axial CT abdomen pelvis w con;Sagittal and coronal reformats were created on a separate w orkstation. Contrast used:100 ml mL of Isovue 300 with IV Contrast, (none if empty) Oral contrast used: without Oral Contrast (none if empty) CT DLP: mGycm, Automated exposure control for dose reduction was used. FINDINGS: LOWER CHEST: Unremarkable ABDOMEN LIVER: Unremarkable GALLBLADDER AND BILE DUCTS: Unremarkable. PANCREAS: Unremarkable. SPLEEN: Unremarkable. ADRENAL GLANDS: Unremarkable. KIDNEYS AND URETERS: No evidence of hydronephrosis or obstructing renal calculus. The ureters are unr emarkable. Symmetric perinephric fat stranding bilaterally. PELVIS BLADDER: No evidence for wall thickening or mass given limitations of exam. REPRODUCTIVE: Unremarkable. ABDOMEN & PELVIS STOMACH AND BOWEL: No evidence of bowel obstruction. Scattered colonic diverticulosis. The appendix i s normal. PERITONEUM/RETROPERITONEUM: No evidence of pneumoperitoneum or free fluid. VASCULATURE: No evidence of aortic aneurysm. MUSCULOSKELETAL: No acute osseous abnormalities. Mild disc degeneration changes are present throughou t the thoracolumbar spine. LYMPH NODES: No gross evidence for lymphadenopathy. SOFT TISSUE/ABDOMINAL WALL: Tiny fat-containing umbilical hernia. IMPRESSION: 1. No evidence for acute left lower quadrant process to explain the patient's pain. Few scattered co lonic diverticula without evidence for diverticulitis. 2. The appendix is normal. 3. No evidence for obstructive uropathy or renal colitis. [facility], , 08/31/2024 7:26 PM
[2024-08-31 20:15] VITALS: BP 137/63; PULSE 76; RESP 16; TEMP 98.3
[2024-08-31] MEDS: FAMOTIDINE 20 MG/2 ML VIAL IV STA (20:48)
[2024-08-31] MEDS: PANTOPRAZOLE 40 MG/10 ML VIAL IVP STA (20:49)
[2024-08-31] MEDS: METOCLOPRAMIDE 5 MG/ML 2 ML VIAL IVP STA (20:49)
[2024-08-31 22:20] LABS: Appearance,Urine Clear (Clear); Bilirubin,Urine Negative (Negative); Blood,Urine Negative (Negative); Color,Urine Light Yellow; Glucose,Urine (UA) Negative (Negative); Ketones,Urine 2+ (Negative); Leukocyte Esterase,Urine Negative (Negative); Nitrite,Urine Negative (Negative); PH, Urine 7.5 (5.0-8.0); Protein,Urine Trace (Negative)
[2024-08-31 22:22] LABS: Specific Gravity,Urine >1.050 (1.001-1.035)
[2024-08-31] MEDS: LIDOCAINE VISCOUS 2% 15 ML CUP PO ONE (22:50)
== END 2024-08-31 22:57 | disposition home or self-care (01) ==
LOC: EC 17:30
DX: K29.70 Gastritis, unspecified, without bleeding (principal); K52.9 Noninfective gastroenteritis and colitis, unspecified; F17.200 Nicotine dependence, unspecified, uncomplicated; Z88.3 Allergy status to other anti-infective agents; Z88.6 Allergy status to analgesic agent; Z91.09 Other allergy status, other than to drugs and biological substances; Z88.8 Allergy status to other drugs, medicaments and biological substances
CPT/HCPCS: 36415; 87651; 80053; 83605; 83690; 84484; 85025; 85610; 85730; 81003; 87636; 71046; 74177; 99284; 96374; 96375; 96361; J2765; Q9967; J2470; J1308